=== PATIENT | female | born 1965 | race Caucasian/White ===

== ENCOUNTER 2023-07-30 17:49 | Emergency (ER) | payer BC, OTHER ==
[2023-07-30 18:15] VITALS: BP 196/85; O2SAT 99
== END 2023-07-30 18:58 | disposition left against medical advice (07) ==
LOC: ED 17:49
DX: Z53.21 Procedure and treatment not carried out due to patient leaving prior to being seen by health care provider (principal)

== ENCOUNTER 2023-07-31 13:23 | Emergency (ER) | payer SELFPAY ==
[2023-07-31 13:33] VITALS: BP 155/79; O2SAT 99
[2023-07-31] MEDS ORDERED: oxyCODONE 5 MG TABLET PO STA (13:35)
--- NOTE | 2023-07-31 13:36 | ED Physician Documentation ---
History of Present Illness - Stated complaint Stated Complaint: LT FOOT PX - Chief complaint Chief Complaint: Ext Problem - History obtained from History obtained from: Patient - Additonal information Additional information: 58-year-old woman with longstanding type 2 diabetes on insulin presents for the evaluation of foot and leg pain that is been going on for about 10 days. There is no specific injury. She described a stabbing pain in the heel. She wonders if it might be neuropathy. She has tried gabapentin without relief. She notes swelling in the area. Denies fevers or chills. PD PAST MEDICAL HISTORY - Present Medications Home Medications: Ambulatory Orders Medication Instructions Recorded Confirmed Gabapentin [Neurontin] 300 mg PO TID 07/30/23 07/31/23 Insulin Glargine [Lantus Solostar] 40 unit SUBQ DAILY 07/30/23 07/31/23 Oxycodone HCl/Acetaminophen 1 each PO Q4H PRN #15 tablet 07/31/23 [Oxycodone-Acetaminophen 10-300] - Allergies Allergies/Adverse Reactions: Allergies Allergy/AdvReac Type Severity Reaction Status Date / Time Penicillins Allergy Rash Verified 07/30/23 18:12 PD ED PE NORMAL - Vitals Vital signs reviewed: Yes - General General: Alert and oriented X 3, No acute distress - Extremities Extremities: Other (see MDM text box too small) - Neuro Neuro: Alert and oriented X 3, Normal speech Results - Vitals Vitals: Vital Signs - 24 hr 07/31/23 13:27 Temperature 36.7 C Heart Rate 102 H Respiratory 20 Rate Blood Pressure 155/79 H O2 Saturation 99 Oxygen O2 Source Room air - Rads (name of study) Three-view x-ray left foot with suggestion of avulsion fracture off the posterior calcaneus. Relevant Findings:: Final report received, EMP independent interpretation of test DVT ultrasound negative per RDMS Relevant Findings:: Prelim report reviewed Procedures - Splint (location) - Minor LLE Splint applied by: Physician Type of splint: Fiberglass, Short leg, Posterior Other: Patient tolerated well, No complications, Neurovascular intact, Crutches provided PD Medical Decision Making - ED course ED course: LLE exam: Focal tenderness of the distal Achilles and insertion of the Achilles on the calcaneus of the left foot. Achilles function is intact though. No tenderness of the plantar fascia. No decrease sensation in the foot. She does have tenderness of the calf as well. There is swelling about the ankle. No warmth or redness. Passive range of motion at the ankle is relatively painless. Normal capillary refill distally in the foot. MDM: 58-year-old woman presents with about 10 days of left heel pain. Differential diagnosis would include calcaneus injury, Achilles tendinitis, and DVT. DVT sono was negative. X-ray showing what looks like an avulsion fracture off the top of the calcaneus. She is placed in a posterior splint nonweightbearing with crutches and advised on orthopedic follow-up. CT was considered but not working today. There is no emergency to that. Departure - Departure Disposition: 01 Home, Self Care Clinical Impression: Left leg pain Calcaneus fracture, left Qualifiers: Encounter type: initial encounter Calcaneus location: unspecified portion of calcaneus Fracture type: closed Fracture alignment: nondisplaced Qualified Code(s): S92.002A - Unspecified fracture of left calcaneus, initial encounter for closed fracture Condition: Good Record reviewed to determine appropriate education?: Yes Instructions: ED Fx Foot Prescriptions: Oxycodone HCl/Acetaminophen [Oxycodone-Acetaminophen 10-300] 1 each PO Q4H PRN #15 tablet PRN Reason: pain Comments: As discussed, it appears that there is probably a calcaneus fracture off the top/back of the calcaneus. Nonweightbearing in the splint keep it elevated. Follow-up with I am prescribing a short course of narcotic pain medication for you. These are potentially dangerous and addictive medications that should be used carefully. These medications may constipate you. Take an ndzz-qac-dfocvtm stool softener (docusate) twice daily with plenty of water while taking these medications. If you go 24 hours without a bowel movement, take soux-dyy-xauwcwb miralax, per package instructions. Do not drink or drive while taking these medications. If you received narcotic or sedating medications while in the emergency department, do not drive for 24 hours. Store this medication in a safe, secure place and out of reach of children. It is a violation of federal law to give or sell this medication to another person or to use in a manner other than prescribed. The ED will not refill narcotic prescriptions, including prescriptions lost or stolen. To dispose of unwanted medications: 1. [facility] provides a drop box for medication in pill form only (no liquids) 8:00 am to 4:30 p.m. Wednesday-Wednesday in the lobby of the [facility] [place], [address] [place] [address]. Empty pills into ziplock bag before disposal. Call [phone] for information. 2.[employer] is a free service available to all [facility] residents. Go to [email or web address] Note that many narcotic pain relievers also contain Tylenol/acetaminophen. Please ensure that your total dose of acetaminophen from all sources does not exceed 3 g (3000 mg) per day. Forms: PCP List
--- NOTE | 2023-07-31 14:14 | XRAY Report ---
PROCEDURE: Foot 3 View LT INDICATIONS: foot/leg pain TECHNIQUE: 3 views of the foot were acquired. COMPARISON: None. FINDINGS: Bones: Focal irregularity is seen involving the posterior calcaneus. Generalized degenerative changes are seen. Soft tissues: No suspicious soft tissue calcifications or masses. IMPRESSION: Focal irregularity seen involving the posterior calcaneus, with moderate suspicion for fracture. Plea se consider a follow-up CT. Reviewed by: Levy Freeman MD on 07/31/2023 1:13 PM BARBY Approved by: Levy Freeman MD on 07/31/2023 1:13 PM BARBY Station ID: [id number]
--- NOTE | 2023-07-31 15:37 | Ultrasound Report ---
PROCEDURE: Duplex Ext Veins Left INDICATIONS: foot/leg pain TECHNIQUE: Real-time imaging, as well as color and pulse Doppler interrogation, were performed of the lower extr emity deep veins from the inguinal ligament to the popliteal fossa. Attempted visualization of the ca lf veins was performed. COMPARISON: None. FINDINGS: The deep veins are normally compressible, and free of intraluminal thrombus. Color and pu lse Doppler demonstrate normal phasic intraluminal flow. There is normal augmentation response to di stal compression maneuver. IMPRESSION: No deep venous thrombosis of the visualized lower extremity. Reviewed by: Lion Alcaraz MD on 07/31/2023 3:36 PM PDT Approved by: Lion Alcaraz MD on 07/31/2023 3:36 PM PDT Station ID: [id number]
--- NOTE | 2023-08-04 10:14 | MISCELLANEOUS PROVIDER NOTE ---
Miscellaneous Provider Note - - Note: 10:13 - Received phone call from [facility] pharmacy in [place] that a prescription electronically submitted by Dr. Keenan on July 31 for Percocet was written for 10 mg - 300 mg. They do not carry this version of Percocet and pharmacist is requesting new prescription for a 10-325 mg which they do have in stock. Reviewed patient's ER record from date of visit. New prescription sent for Percocet [id number] mg.
== END 2023-07-31 15:12 | disposition home or self-care (01) ==
LOC: ED 13:23
DX: S92.002A Unspecified fracture of left calcaneus, initial encounter for closed fracture (principal); X58.XXXA Exposure to other specified factors, initial encounter; E11.9 Type 2 diabetes mellitus without complications; Z79.4 Long term (current) use of insulin
CPT/HCPCS: 29515; 73630; 93971; 99284; A9270

== ENCOUNTER 2023-08-09 08:00 | Outpatient (CLI) | payer SELFPAY ==
--- NOTE | 2023-08-09 15:45 | XRAY Report ---
PROCEDURE: Foot 3 View LT INDICATIONS: LEFT FOOT PAIN TECHNIQUE: 4 views of the foot were acquired. COMPARISON: None. FINDINGS: Bones: Similar appearance of the posterior/superior calcaneus, with a probable healing fracture. Soft tissues: No suspicious soft tissue calcifications or masses. IMPRESSION: Suspected healing posterior calcaneus fracture. Alternatively, this could represent a large insertion al enthesophytes of the Achilles tendon, with or without fracture. Reviewed by: Martin Woodward on 08/09/2023 3:44 PM PDT Approved by: Martin Woodward on 08/09/2023 3:44 PM PDT Station ID: [id number]
== END 2023-08-09 23:59 | disposition home or self-care (01) ==
LOC: DI.WOS 08:00
PROVIDERS: ATTEND Physician Assistant Surgical
DX: M79.672 Pain in left foot (principal); R93.6 Abnormal findings on diagnostic imaging of limbs

== ENCOUNTER 2023-09-07 08:00 | Outpatient (CLI) | payer SELFPAY ==
--- NOTE | 2023-09-07 15:50 | XRAY Report ---
PROCEDURE: Calcaneus LT INDICATIONS: LEFT CALCANEUS FRACTURE TECHNIQUE: Two views of the calcaneus were acquired. COMPARISON: Foot x-ray 08/09/2023 FINDINGS: Bones: Avulsion fracture involving the posterior margin of the calcaneus at the Achilles attachment d emonstrates increased displacement compared to prior exam. Soft tissues: No suspicious calcifications. Achilles tendon appears normal. IMPRESSION: Increased displacement of posterior calcaneal avulsion fracture. Reviewed by: Kenna Soto MD, PhD on 09/07/2023 3:49 PM PDT Approved by: Kenna Soto MD, PhD on 09/07/2023 3:49 PM PDT Station ID: [id number]
== END 2023-09-07 23:59 | disposition home or self-care (01) ==
LOC: DI.WOS 08:00
PROVIDERS: ATTEND Physician Assistant Surgical
DX: S92.002D Unspecified fracture of left calcaneus, subsequent encounter for fracture with routine healing (principal)

== ENCOUNTER 2024-08-10 10:36 | Emergency (ER) | payer SELFPAY ==
[2024-08-10 11:50] LABS: BASOPHILS # (AUTO) 0.1 10^3/uL (0.0-0.1); BASOPHILS % (AUTO) 0.8 %; EOSINOPHILS # (AUTO) 0.2 10^3/uL (0.0-0.7); EOSINOPHILS % (AUTO) 3.2 %; HCT - HEMATOCRIT 43.9 % (37.0-47.0); HGB - HEMOGLOBIN 14.5 g/dL (12.0-16.0); LYMPHOCYTES # (AUTO) 2.3 10^3/uL (1.5-3.5); LYMPHOCYTES % (AUTO) 29.8 %; MEAN CORPUSCULAR HEMOGLOBIN 30.9 pg (27.0-31.0); MEAN CORPUSCULAR VOLUME 93.6 fL (81.0-99.0); MEAN PLATELET VOLUME 10.5 fL (7.9-10.8); MONOCYTES # (AUTO) 0.6 10^3/uL (0.0-1.0); MONOCYTES % (AUTO) 8.4 %; NEUTROPHILS # (AUTO) 4.4 10^3/uL (1.5-6.6); NEUTROPHILS % (AUTO) 57.7 %; PLT - PLATELET COUNT 249 10^3/uL (130-450); RED BLOOD COUNT 4.69 10^6/uL (4.20-5.40); RED CELL DISTRIBUTION WIDTH 12.9 % (12.0-15.0); WHITE BLOOD COUNT 7.6 x10^3/uL (4.8-10.8)
[2024-08-10 12:04] LABS: ALBUMIN 4.2 g/dL (3.2-5.5); ALBUMIN/GLOBULIN RATIO 1.6 (1.0-2.2); BILIRUBIN,TOTAL 0.5 mg/dL (0.2-1.0); CALCIUM 9.6 mg/dL (8.5-10.3); CREATININE 0.7 mg/dL (0.6-1.3); TOTAL PROTEIN 6.8 g/dL (6.4-8.9)
[2024-08-10 12:24] LABS: TROPONIN I HIGH SENSITIVITY 12.3 ng/L (2.3-14.8)
--- NOTE | 2024-08-10 14:36 | ED Physician Documentation ---
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 She said that she is been having dizziness describes it as a woozy off centered feeling for several months now and is worried that something may be related to the ocular stroke versus new stroke is going on. No nausea vomiting no chest pain or shortness of breath no unilateral leg swelling. PD PAST MEDICAL HISTORY - Past Medical History Past Medical History: Yes Cardiovascular: Hypertension Neuro: CVA Endocrine/Autoimmune: Type 2 diabetes - Past Surgical History Past Surgical History: Yes /MEDICAL INSURANCE CLAIMS PROCESSOR: section HEENT: Tonsil/Adenoidectomy - Present Medications Home Medications: Ambulatory Orders Medication Instructions Recorded Confirmed Gabapentin [Neurontin] 300 mg PO TID 07/30/23 07/31/23 Insulin Glargine [Lantus Solostar] 40 unit SUBQ DAILY 07/30/23 07/31/23 Oxycodone HCl/Acetaminophen 1 each PO Q6HR PRN #15 tablet 08/04/23 [Percocet 10-325 mg Tablet] - Allergies Allergies/Adverse Reactions: Allergies Allergy/AdvReac Type Severity Reaction Status Date / Time Penicillins Allergy Rash Verified 08/10/24 10:53 - Social History Does the pt smoke?: Yes Smoking Status: Current every day smoker Does the pt drink ETOH?: No Does the pt have substance abuse?: No - POLST Patient has POLST: No PD ED PE NORMAL - Vitals Vital signs reviewed: Yes - General General: Alert and oriented X 3, No acute distress, Well developed/nourished - HEENT HEENT: Atraumatic, PERRL, EOMI, Moist mucous membranes - Neck Neck: Supple, no meningeal sign - Cardiac Cardiac: RRR, No murmur - Respiratory Respiratory: No respiratory distress - Derm Derm: Normal color, Warm and dry, No rash - Extremities Extremities: No edema - Neuro Neuro: Alert and oriented X 3, cpas 2-12 intact, No motor deficit, No sensory deficit, Normal speech Eye Opening: Spontaneous Motor: Obeys Commands Verbal: Oriented GCS Score: 15 - Psych Psych: Normal mood Results - Vitals Vitals: Vital Signs - 24 hr 08/10/24 08/10/24 08/10/24 10:46 14:00 15:00 Temperature 36.8 C Heart Rate 92 94 86 Respiratory 15 18 17 Rate Blood Pressure 202/85 H 187/118 H 165/100 H O2 Saturation 99 97 96 08/10/24 17:13 Temperature Heart Rate 84 Respiratory 15 Rate Blood Pressure 165/104 H O2 Saturation 97 Oxygen O2 Source Room air - Labs Labs: Laboratory Tests 08/10/24 08/10/24 11:41 11:41 WBC 7.6 RBC 4.69 Hgb 14.5 Hct 43.9 MCV 93.6 MCH 30.9 MCHC 33.0 RDW 12.9 Plt Count 249 MPV 10.5 Neut # (Auto) 4.4 Lymph # (Auto) 2.3 [place] # (Auto) 0.6 Eos # (Auto) 0.2 Baso # (Auto) 0.1 Absolute Nucleated RBC 0.00 Nucleated RBC % 0.0 Sodium 137 Potassium 4.0 Chloride 102 Carbon Dioxide 29 Anion Gap 6.0 BUN 14 Creatinine 0.7 Estimated GFR (MDRD) 85 L Glucose 107 H Calcium 9.6 Total Bilirubin 0.5 AST 15 ALT 13 Alkaline Phosphatase 73 Troponin I High Sens 12.3 Total Protein 6.8 Albumin 4.2 Globulin 2.6 Albumin/Globulin Ratio 1.6 Lipase 11 - Rads (name of study) Head CT without Relevant Findings:: Final report received, EMP independent interpretation of test, Other (No acute intracranial pathology or finding) Angio head and neck CT Relevant Findings:: Final report received, EMP independent interpretation of test, Other (Proximal internal carotid arteries are widely patent. Markedly tortuosity of the high cervical carotids just below the petrous bone. Moderate to severe high right cervical carotid stenosis below the petrous spine secondary to a mixture of hard and soft plaque. ) PD Medical Decision Making - ED course ED course: 59-year-old female presents emergency department for ongoing months of chronic dizziness and recent diagnoses of ocular right eye stroke. Patient has no nystagmus she is neurologically intact her dizziness she says has slightly increased over the last several months labs are complete for further evaluation no acute abnormal findings. She is being followed by an mathematician for her right ocular stroke. Head CT was complete for further evaluation no acute intracranial hemorrhages or abnormalities CTA head and neck was also complete for further evaluation which revealed normal variant arch anatomy Long segment send no acute disease is much as moderate. Proximal internal carotid arteries are widely patent. Marked tortuosity of the high cervical carotids just below the petrous bone there is a moderate to severe high right cervical carotid stenosis below the petrous bone secondary to a mixture of hard and soft plaque there is significant bilateral cavernous carotid stenotic disease no intracranial arterial filling defect or occlusion or aneurysm. Patient was reassured by these findings she was told to follow-up with her primary care provider who is a polisher brass I informed her that she may benefit from establishing care also with her provider who practices Western medicine to maybe get on some blood pressure medications and someone you can follow-up with her labs and possible outpatient imaging to help with her ongoing dizziness that she has been experiencing. Return precautions have been given patient is safe for discharge at this time. Departure - Departure Disposition: 01 Home, Self Care Clinical Impression: Dizzy Instructions: ED Dizziness UKO Comments: Thank you for trusting us with your care, we have evaluated you for your ongoing dizziness that you are experiencing. We have completed a head CT as well as a CT angio head and neck and we are not seeing any acute abnormalities or findings at this point in time. I would strongly encourage you to establish care with a primary care provider soon as possible for further evaluation of the symptoms that you are experiencing. Please come back in if you are starting develop any worsening symptoms weakness in one-sided body or any other concerning emergent symptoms. PT NAME: BETITO RAI MR#: [id number] REG ER/ED AGE: 59 CI DT/TM: 08/10/24 PCP: Calos Caballero ND : 1965 ATT: SEX: F ORD: Keri Dickson INSIDE SALES ASSISTANT EXAM: [id number] CT/HNA PROCEDURE: Angio Head/Neck INDICATIONS: dizziness, known rt eye ocular stroke TECHNIQUE: After the administration of intravenous contrast, 1 mm thick sections acquired from the aortic arch through the [place]. 3-dimensional zjhfjyb-qfobjeohm-gkcwwxyylz (MIP) and/or volume rendering reformats were acquired of the central intracranial vasculature and neck separately. For radiation dose reduction, the following was used: automated exposure control, adjustment of mA and/or kV according to patient size. CONTRAST: 80ml [id number] COMPARISON: CT head without contrast from the same day which demonstrates no acute intracranial process.. FINDINGS: Image quality: Diagnostic. HEAD CT: CSF Spaces: Basal cisterns are patent. No extra-axial fluid collections. Ventricles are normal in size and shape. Brain: No significant abnormality is seen for scanning technique. Skull and face: Calvarium and visualized facial bones appear intact, without suspicious lesions. Sinuses: Visualized sinuses and mastoids are clear. HEAD CT ANGIOGRAPHY: Anterior circulation: The high cervical internal carotid arteries right below their entrance into the petrous bone are markedly tortuous, right greater than left. The high right cervical carotid has a calcified stenosis which is moderate to severe with associated minimal soft plaque component. This is well seen on coronal image 61 of series 11 and axial image 79 of series 7. There is luminal narrowing of perhaps 60-70%. Above this, there is extensive tortuosity. There is at least a moderate stenosis of the right cavernous carotid on image 62 of series 7. There is a moderate to severe focal left cavernous carotid stenosis which is seen on images 64 and 65 of axial series 7. There is at least moderate diffuse left cavernous carotid stenotic disease. The flow within the paired anterior cerebral arteries is normal and symmetric. The flow within the middle cerebral arteries is normal and symmetric. The anterior communicating artery is seen. No aneurysms are seen. Posterior circulation: Visualized portions of the vertebral arteries demonstrate normal caliber, and join to form a normal appearing basilar artery. Flow within the posterior cerebral arteries is normal and symmetric. No aneurysms are seen. 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 There is extensive plaque present in the apparent right subclavian with the focal moderate weblike stenosis. Reference coronal images 99 and 98 of coronal series 11. The origins of the common carotid arteries appear patent. The common carotid arteries demonstrate normal caliber and courses. The bifurcation regions are both widely patent. There is no proximal internal carotid artery stenosis noted. The high cervical internal carotid arteries right below the entrance into the petrous bone are markedly tortuous, right greater than left. The high right cervical carotid has a calcified stenosis which is moderate to severe with associated minimal soft plaque component. This is well seen on coronal image 61 of series 11 and axial image 79 of series 7. There is luminal narrowing of perhaps 60-70%. Above this, there is extensive tortuosity. Posterior circulation: The origins of the vertebral arteries both appear widely patent. The more superior extracranial portions of both vertebral arteries also demonstrate normal courses and calibers. They join to form a normal appearing basilar artery. Soft tissues: Visualized neck soft tissues demonstrate no suspicious abnormalities. Bones: No suspicious bony lesions. Visualized cervical spine appears normally aligned. IMPRESSION: 1. Normal variant arch anatomy with an apparent right subclavian which has long segment stenotic disease, as much is moderate. 2. Proximal internal carotid arteries are widely patent. 3. There is marked tortuosity of the high cervical carotids just below the petrous bone. There is a moderate to severe high right cervical carotid stenosis below the petrous bone secondary to a mixture of hard and soft plaque. 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 4. No intracranial arterial filling defect or occlusion or aneurysm. The estimate of stenosis included in the report of the imaging study was calculated using the NASCET method PT NAME: BETITO RAI MR#: [id number] REG ER/ED AGE: 59 CI DT/TM: 08/10/24 PCP: Calos Caballero ND : 1965 ATT: SEX: F ORD: Valeria kuhn MD EXAM: [id number] CT/HEADWO ([id number]) PROCEDURE: Head WO INDICATIONS: R eye visual loss, L eye blurry TECHNIQUE: Noncontrast 4.5 mm thick angled axial sections acquired from the foramen magnum to the vertex. For radiation dose reduction, the following was used: automated exposure control, adjustment of mA and/or kV according to patient size. COMPARISON: None. FINDINGS: Image quality: Excellent. CSF spaces: Basal cisterns are patent. No extra-axial fluid collections. Ventricles are normal in size and shape. Brain: No midline shift. No intracranial masses or hemorrhage. Mike-white matter interface is normal. Intracranial carotid calcifications. Age-related volume loss and age appropriate small vessel ischemic change. Skull and face: Calvarium and visualized facial bones are intact, without suspicious lesions. Sinuses: Visualized sinuses and mastoids are clear. IMPRESSION: No acute intracranial pathology. Reviewed by: Chung Cerda MD on 08/10/2024 3:29 PM PDT Approved by: Chung Cerda MD on 08/10/2024 3:29 PM PDT Forms: PCP List Discharge Date/Time: 08/10/24 17:13
[2024-08-10] MEDS ORDERED: iohexoL-300 100 ML VIAL ONE (14:43)
[2024-08-10] MEDS: iohexoL-300 100 ML VIAL IVP ONE (15:21)
--- NOTE | 2024-08-10 15:30 | CT Report ---
PROCEDURE: Head WO INDICATIONS: R eye visual loss, L eye blurry TECHNIQUE: Noncontrast 4.5 mm thick angled axial sections acquired from the foramen magnum to the vertex. For r adiation dose reduction, the following was used: automated exposure control, adjustment of mA and/or kV according to patient size. COMPARISON: None. FINDINGS: Image quality: Excellent. CSF spaces: Basal cisterns are patent. No extra-axial fluid collections. Ventricles are normal in size and shape. Brain: No midline shift. No intracranial masses or hemorrhage. Mike-white matter interface is norm al. Intracranial carotid calcifications. Age-related volume loss and age appropriate small vessel is chemic change. Skull and face: Calvarium and visualized facial bones are intact, without suspicious lesions. Sinuses: Visualized sinuses and mastoids are clear. IMPRESSION: No acute intracranial pathology. Reviewed by: Chung Cerda MD on 08/10/2024 3:29 PM PDT Approved by: Chung Cerda MD on 08/10/2024 3:29 PM PDT Station ID: [id number]
--- NOTE | 2024-08-10 15:57 | CT Report ---
PROCEDURE: Angio Head/Neck INDICATIONS: dizziness, known rt eye ocular stroke TECHNIQUE: After the administration of intravenous contrast, 1 mm thick sections acquired from the aortic arch t hrough the [employer]. 3-dimensional btozequ-pqnndhygs-kgoyutftml (MIP) and/or volume renderin g reformats were acquired of the central intracranial vasculature and neck separately. For radiation dose reduction, the following was used: automated exposure control, adjustment of mA and/or kV acco rding to patient size. CONTRAST: 80ml [id number] COMPARISON: CT head without contrast from the same day which demonstrates no acute intracranial proc ess.. FINDINGS: Image quality: Diagnostic. HEAD CT: CSF Spaces: Basal cisterns are patent. No extra-axial fluid collections. Ventricles are normal in size and shape. Brain: No significant abnormality is seen for scanning technique. Skull and face: Calvarium and visualized facial bones appear intact, without suspicious lesions. Sinuses: Visualized sinuses and mastoids are clear. HEAD CT ANGIOGRAPHY: Anterior circulation: The high cervical internal carotid arteries right below their entrance into the petrous bone are markedly tortuous, right greater than left. The high right cervical carotid has a c alcified stenosis which is moderate to severe with associated minimal soft plaque component. This is well seen on coronal image 61 of series 11 and axial image 79 of series 7. There is luminal narrowing of perhaps 60-70%. Above this, there is extensive tortuosity. There is at least a moderate stenosis of the right cavernous carotid on image 62 of series 7. There is a moderate to severe focal left cave rnous carotid stenosis which is seen on images 64 and 65 of axial series 7. There is at least moderat e diffuse left cavernous carotid stenotic disease. The flow within the paired anterior cerebral arter ies is normal and symmetric. The flow within the middle cerebral arteries is normal and symmetric. The anterior communicating artery is seen. No aneurysms are seen. Posterior circulation: Visualized portions of the vertebral arteries demonstrate normal caliber, and join to form a normal appearing basilar artery. Flow within the posterior cerebral arteries is norm al and symmetric. No aneurysms are seen. 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 There is extensive plaque present in the apparent right subclavian with the focal moderate weblike stenosis. Reference coronal images 99 and 9 8 of coronal series 11. The origins of the common carotid arteries appear patent. The common carotid arteries demonstrate normal caliber and courses. The bifurcation regions are both widely patent. Th ere is no proximal internal carotid artery stenosis noted. The high cervical internal carotid arterie s right below the entrance into the petrous bone are markedly tortuous, right greater than left. The high right cervical carotid has a calcified stenosis which is moderate to severe with associated mini mal soft plaque component. This is well seen on coronal image 61 of series 11 and axial image 79 of s rain 7. There is luminal narrowing of perhaps 60-70%. Above this, there is extensive tortuosity. Posterior circulation: The origins of the vertebral arteries both appear widely patent. The more figueroa perior extracranial portions of both vertebral arteries also demonstrate normal courses and calibers. They join to form a normal appearing basilar artery. Soft tissues: Visualized neck soft tissues demonstrate no suspicious abnormalities. Bones: No suspicious bony lesions. Visualized cervical spine appears normally aligned. IMPRESSION: 1. Normal variant arch anatomy with an apparent right subclavian which has long segment stenotic dise ase, as much is moderate. 2. Proximal internal carotid arteries are widely patent. 3. There is marked tortuosity of the high cervical carotids just below the petrous bone. There is a m oderate to severe high right cervical carotid stenosis below the petrous bone secondary to a mixture of hard and soft plaque. 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 4. No intracranial arterial filling defect or occlusion or aneurysm. The estimate of stenosis included in the report of the imaging study was calculated using the NASCET method Reviewed by: Chung Cerda MD on 08/10/2024 3:55 PM PDT Approved by: Chung Cerda MD on 08/10/2024 3:55 PM PDT Station ID: [id number]
[2024-08-10 17:30] VITALS: BP 165/104; O2SAT 97
== END 2024-08-10 17:13 | disposition home or self-care (01) ==
LOC: ED 10:36
DX: R42 Dizziness and giddiness (principal); F17.200 Nicotine dependence, unspecified, uncomplicated
CPT/HCPCS: 36415; 70450; 70496; 70498; 80053; 83690; 84484; 85025; 93005; 99283; 99284; Q9967; 83735

== ENCOUNTER 2025-09-13 16:19 | Observation (INO) ==
[2025-09-13] MEDS: SODIUM CHLORIDE 0.9% 1,000 ML IV STA (17:07)
[2025-09-13 17:18] LABS: HCT - HEMATOCRIT 39.5 % (37.0-47.0); HGB - HEMOGLOBIN 13.2 g/dL (12.0-16.0); MEAN PLATELET VOLUME 10.0 fL (7.9-10.8); NRBC ABSOLUTE COUNT (AUTO) 0.00 x10^3/uL; NUCLEATED RED BLOOD CELLS AUTO 0.0 /100WBC; PLT - PLATELET COUNT 268 10^3/uL (130-450); RED CELL DISTRIBUTION WIDTH 12.0 % (12.0-15.0)
[2025-09-13 17:28] LABS: ALT ALANINE AMINOTRANSFERASE 31.0 IU/L (10-60); AST ASPARTATE AMINOTRANSFERASE 24.0 IU/L (10-42); BUN - BLOOD UREA NITROGEN 43.0 mg/dL (6-20); CARBON DIOXIDE - CO2 27.0 mmol/L (21-32); CREATININE 1.5 mg/dL (0.6-1.3); GFR - MDRD 35.0 (>89)
--- OUTSIDE RECORDS SUMMARY | 2025-09-13 17:28 | EXTERNAL MEDICAL SUMMARY RPT | Continuity of Care Document ---
Author Organization [facility] Address [address] [place] [id number] Phone Problems date description facility 2025-09-05 15:28 Calculus of gallblad shobha [facility]stit[facility] 2025-09-07 09:39 Calculus of gallblad shobha without cholecystitis [facility] [employer] [facility] 2025-09-07 09:39 [facility] 2025-09-12 14:04 Heart failure, unspecified id [facility] 2025-09-12 14:04 Calculus of gallblad shobha without cholecystitis without obstruction [facility] 2025-09-12 14:04 Acute cholecystitis [facility] 2025-09-12 14:04 [facility] foot [facility] [employer] [facility] 2025-09-12 14:04 [facility]pitations [facility] 2025-09-12 14:04 Dyspnea, unspecified [facility] 2025-09-12 14:04 Other forms of dyspnea [facility] 2025-09-12 14:04 Upper abdominal pain, unspecifi ed [facility] 2025-09-12 14:04 Right upper quadrant pain [facility] 2025-09-12 14:04 Epigastric pain [facility] 2025-09-12 14:04 Nausea [facility] 2025-09-12 14:04 [facility] 14:04 Nausea with vomiting, unspecifi ed [facility] 2025-09-12 14:04 Dizziness and giddiness [facility] 2025-09-12 15:55 Heart failure, unspecified id [facility] 2025-09-12 15:55 Calculus of gallblad shobha without cholecystitis without obstruction [facility] 2025-09-12 15:55 Acute [facility]stitis [facility] 2025-09-12 15:55 [facility] 2025-09-12 15:55 Palpitations [facility] 2025-09-12 15:55 Dyspnea, unspecified [facility] 2025-09-12 15:55 Other forms of dyspnea [facility] 2025-09-12 15:55 Upper abdominal pain, unspecifi ed [facility] 2025-09-12 15:55 Right upper quadrant pain [facility] 2025-09-12 15:55 Epigastric pain [facility] 2025-09-12 15:55 Nausea [facility] 2025-09-12 15:55 [facility]omiting, unspecified [facility] 2025-09-12 15:55 Nausea with vomiting, unspecifi ed [facility] 2025-09-12 15:55 Dizziness and giddiness [facility] Results/Labs test date facility value unit notes Result panel 1 NUCLEATED RED BLOOD CELLS AUTO 2025-09-05 11:57 [facility] 0.0 /100wbc (missing) NRBC ABSOLUTE COUNT (AUTO) 2025-09-05 11:57 [facility] 0.00 x10 3/ul (missing) BASOPHILS # (AUTO) 2025-09-05 11:57 [facility] 0.1 10 3/ul (missing) EOSINOPHILS # (AUTO) 2025-09-05 11:57 [facility] 0.2 10 3/ul (missing) BILIRUBIN,TOTAL 2025-09-05 11:57 [facility] 0.4 mg/dl As of May 2023 testing method has changed, this may include reference ranges. MONOCYTES # (AUTO) 2025-09-05 11:57 [facility] 0.9 10 3/ul (missing) CREATININE 2025-09-05 11:57 [facility] 1.0 mg/dl As of May 2023 testing method has changed, this may include reference ranges. ALBUMIN/GLOBULIN RATIO 2025-09-05 11:57 [facility] 1.4 (missing) (missing) WHITE BLOOD COUNT 2025-09-05 11:57 [facility] 10.1 x10 3/ul (missing) MEAN CORPUSCULAR VOLUME 2025-09-05 11:57 [facility] 100.3 fl (missing) CHLORIDE 2025-09-05 11:57 [facility] 102 mmol/l As of May 2023 testing method has changed, this may include reference ranges. RED CELL DISTRIBUTION WIDTH 2025-09-05 11:57 [facility] 12.3 % (missing) HGB - HEMOGLOBIN 2025-09-05 11:57 [facility] 12.7 g/dl (missing) SODIUM 2025-09-05 11:57 [facility] 135 mmol/l (missing) BUN - BLOOD UREA NITROGEN 2025-09-05 11:57 [facility] 18 mg/dl As of May 2023 testing method has changed, this may include reference ranges. LYMPHOCYTES # (AUTO) 2025-09-05 11:57 [facility] 2.1 10 3/ul (missing) GLUCOSE 2025-09-05 11:57 [facility] 206 mg/dl As of May 2023 testing method has changed, this may include reference ranges. AST ASPARTATE AMINOTRANSFERASE 2025-09-05 11:57 [facility] 21 iu/l As of May 2023 testing method has changed, this may include reference ranges. ALT ALANINE AMINOTRANSFERASE 2025-09-05 11:57 [facility] [facility] 23 iu/l As of May 2023 testing method has changed, this may include reference ranges. LIPASE 2025-09-05 11:57 [facility] 26 u/l As of May 2023 testing method has changed, this may include reference ranges. PLT - PLATELET COUNT 2025-09-05 11:57 [facility] 261 10 3/ul (missing) ANION GAP 2025-09-05 11:57 [facility] 3.0 (missing) (missing) GLOBULIN 2025-09-05 11:57 [facility] 3.1 g/dl (missing) RED BLOOD COUNT 2025-09-05 11:57 [facility] 3.88 10 6/ul (missing) CARBON DIOXIDE - CO2 2025-09-05 11:57 [facility] 30 mmol/l As of May 2023 testing method has changed, this may include reference ranges. MEAN CORPUSCULAR HGB CONC 2025-09-05 11:57 [facility] 32.6 g/dl (missing) MEAN CORPUSCULAR HEMOGLOBIN 2025-09-05 11:57 [facility] 32.7 pg (missing) HCT - HEMATOCRIT 2025-09-05 11:57 [facility] 38.9 % (missing) ALBUMIN 2025-09-05 11:57 [facility] 4.2 g/dl As of May 2023 testing method has changed, this may include reference ranges. POTASSIUM 2025-09-05 11:57 [facility] 4.6 mmol/l As of May 2023 testing method has changed, this may include reference ranges. GFR - MDRD 2025-09-05 11:57 [facility] 56 (missing) The IDMS-traceable MDRD Study Equation has been validated extensively in and populations between the ages of 18 and 70 with impaired kidney function (eGFR < 60 mL/min/1.73m2) and has shown good performance for patients with all common causes of kidney disease. Although this equation has not been validated for patients older than 70, an MDRD-derived eGFR may still be a useful tool for providers caring for patients older than 70. References: http://www.nkdep. nih.gov/lab-evalu ation/gfr/creatin ine-stand ardization, last updated January 2012. NEUTROPHILS # (AUTO) 2025-09-05 11:57 [facility] 6.9 10 3/ul (missing) TOTAL PROTEIN 2025-09-05 11:57 [facility] 7.3 g/dl As of May 2023 testing method has changed, this may include reference ranges. ALKALINE PHOSPHATASE 2025-09-05 11:57 [facility] 70 iu/l As of May 2023 testing method has changed, this may include reference ranges. CALCIUM 2025-09-05 11:57 [facility] 9.6 mg/dl As of May 2023 testing method has changed, this may include reference ranges. MEAN PLATELET VOLUME 2025-09-05 11:57 [facility] 9.9 fl (missing) Result panel 2 UROBILINOGEN,URINE 2025-09-05 14:10 [facility] 0.2 (NORMAL) e.u./dl (missing) SPECIFIC GRAVITY,URINE 2025-09-05 14:10 [facility] 1.010 (missing) (missing) PH,URINE 2025-09-05 14:10 [facility] 7.0 ph (missing) CLARITY,URINE 2025-09-05 14:10 [facility] CLEAR (missing) (missing) COLOR,URINE 2025-09-05 14:10 [facility] LIGHT YELLOW (missing) URINE CLEAN CATCH LEUKOCYTE ESTERASE, URINE 2025-09-05 14:10 [facility] NEGATIVE (missing) (missing) NITRITE,URINE 2025-09-05 14:10 [facility] NEGATIVE (missing) (missing) OCCULT BLOOD,URINE 2025-09-05 14:10 [facility] NEGATIVE (missing) (missing) BILIRUBIN,URINE 2025-09-05 14:10 [facility] NEGATIVE (missing) Bilirubin can be influenced by color interference. Please correlate positive results with clinical presentation GLUCOSE, URINE (UA) 2025-09-05 14:10 [facility] NEGATIVE mg/dl (missing) KETONES,URINE (UA) 2025-09-05 14:10 [facility] NEGATIVE mg/dl (missing) UR CULTURE IF IND 2025-09-05 14:10 [facility] NOT INDICATED (missing) (missing) URINE MICROSCOPIC INDICATED? 2025-09-05 14:10 [facility] NOT INDICATED (missing) (missing) PROTEIN,URINE 2025-09-05 14:10 [facility] TRACE mg/dl (missing) Result panel 3 NUCLEATED RED BLOOD CELLS AUTO 2025-09-11 19:22 [facility] 0.0 /100wbc (missing) BASOPHILS # (AUTO) 2025-09-11 19:22 [facility] 0.0 10 3/ul (missing) NRBC ABSOLUTE COUNT (AUTO) 2025-09-11 19:22 [facility] 0.00 x10 3/ul (missing) EOSINOPHILS # (AUTO) 2025-09-11 19:22 [facility] 0.1 10 3/ul (missing) BILIRUBIN,TOTAL 2025-09-11:22 [facility] 0.4 mg/dl As of May 2023 testing method has changed, this may include reference ranges. MONOCYTES # (AUTO) 2025-09-11 19:22 [facility] 0.6 10 3/ul (missing) CREATININE 2025-09-11 19:22 [facility] 0.8 mg/dl As of May 2023 testing method has changed, this may include reference ranges. ALBUMIN/GLOBULIN RATIO 2025-09-11 19:22 [facility] 1.4 (missing) (missing) LYMPHOCYTES # (AUTO) 2025-09-11 19:22 [facility] 1.6 10 3/ul (missing) WHITE BLOOD COUNT 2025-09-11 19:22 [facility] 10.2 x10 3/ul (missing) CHLORIDE 2025-09-11 19:22 [facility] 103 mmol/l As of May 2023 testing method has changed, this may include reference ranges. RED CELL DISTRIBUTION WIDTH 2025-09-11 19:22 [facility] 11.9 % (missing) HGB - HEMOGLOBIN 2025-09-11 19:22 [facility] 13.6 g/dl (missing) SODIUM 2025-09-11 19:22 [facility] 138 mmol/l (missing) GLUCOSE 2025-09-11 19:22 [facility] 152 mg/dl As of May 2023 testing method has changed, this may include reference ranges. BUN - BLOOD UREA NITROGEN 2025-09-11 19:22 [facility] 16 mg/dl As of May 2023 testing method has changed, this may include reference ranges. LIPASE 2025-09-11 19:22 [facility] 19 u/l As of May 2023 testing method has changed, this may include reference ranges. AST ASPARTATE AMINOTRANSFERASE 2025-09-11 19:22 [facility] 25 iu/l As of May 2023 testing method has changed, this may include reference ranges. CARBON DIOXIDE - CO2 2025-09-11 19:22 [facility] 26 mmol/l As of May 2023 testing method has changed, this may include reference ranges. PLT - PLATELET COUNT 2025-09-11 19:22 [facility] 271 10 3/ul (missing) GLOBULIN 2025-09-11 19:22 [facility] 3.1 g/dl (missing) MEAN CORPUSCULAR HEMOGLOBIN 2025-09-11 19:22 [facility] 32.2 pg (missing) MEAN CORPUSCULAR HGB CONC 2025-09-11 19:22 [facility] 33.1 g/dl (missing) ALT ALANINE AMINOTRANSFERASE 2025-09-11 19:22 [facility] 37 iu/l As of May 2023 testing method has changed, this may include reference ranges. RED BLOOD COUNT 2025-09-11 19:22 [facility] 4.22 10 6/ul (missing) POTASSIUM 2025-09-11 19:22 [facility] 4.3 mmol/l As of May 2023 testing method has changed, this may include reference ranges. ALBUMIN 2025-09-11 19:22 [facility] 4.4 g/dl As of May 2023 testing method has changed, this may include reference ranges. HCT - HEMATOCRIT 2025-09-11 19:22 [facility] 41.1 % (missing) ALKALINE PHOSPHATASE 2025-09-11 19:22 [facility] 69 iu/l As of May 2023 testing method has changed, this may include reference ranges. TOTAL PROTEIN 2025-09-11 19:22 [facility] 7.5 g/dl As of May 2023 testing method has changed, this may include reference ranges. NEUTROPHILS # (AUTO) 2025-09-11 19:22 [facility] 7.9 10 3/ul (missing) GFR - MDRD 2025-09-11 19:22 [facility] 73 (missing) The IDMS-traceable MDRD Study Equation has been validated extensively in and populations between the ages of 18 and 70 with impaired kidney function (eGFR < 60 mL/min/1.73m2) and has shown good performance for patients with all common causes of kidney disease. Although this equation has not been validated for patients older than 70, an MDRD-derived eGFR may still be a useful tool for providers caring for patients older than 70. References: http://www.nkdep. nih.gov/lab-evalu ation/gfr/creatin ine-stand ardization, last updated January 2012. ANION GAP 2025-09-11 19:22 [facility] 9.0 (missing) (missing) CALCIUM 2025-09-11 19:22 [facility] 9.8 mg/dl As of May 2023 testing method has changed, this may include reference ranges. MEAN PLATELET VOLUME 2025-09-11 19:22 [facility] 9.9 fl (missing) MEAN CORPUSCULAR VOLUME 2025-09-11 19:22 [facility] 97.4 fl (missing) Result panel 4 CASTS, URINE 2025-09-11 19:35 [facility] 0-2 Hyaline Casts /lpf (missing) WBC,URINE 2025-09-11 19:35 [facility] 0-3 /hpf (missing) RBC,URINE 2025-09-11 19:35 [facility] 0-5 /hpf (missing) UROBILINOGEN,URIN E 2025-09-11 19:35 [facility] 0.2 (NORMAL) e.u./dl (missing) SPECIFIC GRAVITY,URINE 2025-09-11 19:35 [facility] 1.025 (missing) (missing) PROTEIN,URINE 2025-09-11 19:35 [facility] 100 mg/dl (missing) KETONES,URINE (UA) 2025-09-11 19:35 [facility] 40 mg/dl (missing) PH,URINE 2025-09-11 19:35 [facility] 6.0 ph (missing) SQUAMOUS EPITHELIAL CELL,UR 2025-09-11 19:35 [facility] FEW Squamous (missing) (missing) BACTERIA,URINE 2025-09-11 19:35 [facility] Few /hpf (missing) CLARITY,URINE 2025-09-11 19:35 [facility] HAZY (missing) (missing) URINE MICROSCOPIC INDICATED? 2025-09-11 19:35 [facility] INDICATED (missing) (missing) LEUKOCYTE ESTERASE, URINE 2025-09-11 19:35 [facility] NEGATIVE (missing) (missing) NITRITE,URINE 2025-09-11 19:35 [facility] NEGATIVE (missing) (missing) BILIRUBIN,URINE 2025-09-11 19:35 [facility] NEGATIVE (missing) Bilirubin can be influenced by color interference. Please correlate positive results with clinical presentation GLUCOSE, URINE (UA) 2025-09-11 19:35 [facility] NEGATIVE mg/dl (missing) UR CULTURE IF IND 2025-09-11 19:35 [facility] NOT INDICATED (missing) (missing) OCCULT BLOOD,URINE 2025-09-11 19:35 [facility] TRACE-INTACT (missing) (missing) COLOR,URINE 2025-09-11 19:35 [facility] YELLOW (missing) URINE CLEAN CATCH Social History date description facility
--- NOTE | 2025-09-13 18:15 | XRAY Report ---
PROCEDURE: XR Chest 1V INDICATIONS: lightheadeness TECHNIQUE: One view of the chest was acquired. COMPARISON: CXR 05/27/2025. FINDINGS: Surgical changes and devices: None. Lungs and pleura: No pleural effusions or pneumothorax. No consolidation. Mediastinum: Mediastinal contours appear normal. Heart size is normal. Bones and chest wall: No suspicious bony lesions. Overlying soft tissues appear unremarkable. IMPRESSION: No acute cardiopulmonary process. Reviewed by: Parrish Merchant MD on 09/13/2025 6:11 PM PDT Approved by: Parrish Merchant MD on 09/13/2025 6:11 PM PDT Station ID: [id number]
--- NOTE | 2025-09-13 18:26 | ED Physician Documentation ---
History of Present Illness Stated complaint Stated Complaint: LOW BP, ABD PX Chief complaint Chief Complaint: Abd Pain History obtained from History obtained from: Patient History of Present Illness Timing: Prior to arrival Additonal information Additional information: Patient 60-year-old female presenting to the emergency department with private vehicle for low blood pressure and abdominal pain she was brought in by surgery appointment with His office after being seen here multiple times for cholelithiasis symptoms. She notes s she was scheduling with 's office for planning for surgery in the outpatient setting but while there she was notably hypotensive and lightheaded. Patient notes this has been going on for multiple months. Earlier this year in March she had an NSTEMI which she was seen here for and transferred to [facility] where she had 3 stents placed. She notes she has had no syncopal episodes no nausea or vomiting. She has had decreased eating or drinking secondary to her right upper quadrant pain. She denies any chest pain no shortness of breath with her symptoms she has resolution of dizziness and lightheadedness while at rest. Meds/Allgy Home Medications Ambulatory Orders Medication Instructions Recorded Confirmed flash glucose scanning reader 10/03/24 09/13/25 (FreeStyle Cassie 2 [place]) flash glucose sensor (FreeStyle 10/03/24 09/13/25 Cassie 2 Sensor kit) insulin glargine 100 unit/mL (3 30 unit subcut DAILY 1 12/03/23 09/13/25 mL) subcutaneous pen (Lantus Solostar U-100 Insulin) pen needle, diabetic 31 gauge x 10/03/24 09/13/25 5/16" (Droplet Pen Needle) albuterol sulfate 90 mcg/actuation 2 puff inhalation Q ID PRN 01/22/25 09/13/25 aerosol inhaler (Ventolin HFA) shortness of breath or wheezing #8.5 grams clopidogrel 75 mg tablet (Plavix) 75 mg PO DAILY #30 t abs 01/22/25 09/13/25 atorvastatin 10 mg tablet (Lipitor) 10 mg PO QPM 02/1109/13/25 amlodipine 5 mg tablet 5 mg PO BID 09/05/25 10/ 5 carvedilol 12.5 mg tablet 12.5 mg PO BID 09/05/25 10 ezetimibe 10 mg tablet 10 mg PO DAILY 09/05/2508/17 insulin lispro 100 unit/mL 3 - 5 unit subcut TID 09/0509/13/25 subcutaneous pen (Humalog KwikPen (U-100) Insulin) losartan 50 mg tablet 50 mg PO BID 09/05/25 ondansetron 4 mg disintegrating 4 mg PO Q8H PRN nausea and 09/05/25 09/13/25 tablet vomiting #15 tabs oxycodone 5 mg tablet 5 mg PO Q8H PRN pain #15 tab s 09/05/25 09/13/25 spironolactone 25 mg tablet 25 mg PO DAILY 09/05/25 (Aldactone) Allergies Allergies Allergy/AdvReac Type Severity Reaction Status Date / Time Penicillins Allergy Rash Verified 09/13/25 16:43 PFSH Active Problems All Active Problems (Updated 09/13/25 @ 18:51 by Jocelyn Gomez PA-C) Biliary colic (Acute) SYLVIA (acute kidney injury) (Acute) Vomiting (Acute) Cholelithiasis (Acute) Medical History Medical History Afib Diabetes Surgical History Surgical History Hx of heart artery stent Social History Social History Smoking Status: Current every day smoker Number of Years Smoked: 45 How many cigarettes a day do you smoke? (20 cigarettes=1 Pk): 10 Do you dip or chew tobacco?: No Do you vape?: No Living arrangement: At home Level: Independent Do you feel safe in your home environment?: Yes History of physical, verbal, emotional, or financial abuse?: No ETOH Use: None Substance Use: denies use POLST Patient has POLST: No Exam Exam Vital Signs: Vital Signs x48h Temp Pulse Resp BP Pulse Ox 09/13/25 18:28 79 18 166/79 H 94 09/13/25 16:43 76 18 122/76 97 09/13/25 16:39 37.0 C 81 16 92/57 L 97 Constitutional normal general appearance HENMT normocephalic and head/scalp atraumatic Eyes PERRL, EOMs intact bilaterally and conjunctivae normal Neck/C-Spine visual inspection normal Lymph no lymphadenopathy noted Chest inspection of chest normal Respiratory breath sounds equal bilaterally, normal respiratory effort and clear to auscultation bilaterally Cardiovascular normal heart rate noted, regular rhythm noted, no gallop and no rub Gastrointestinal Abdomen is benign on arrival no rebound or guarding palpation is soft with active bowel sounds on auscultation. No CVA tenderness. Skin skin color normal and no rash Results Vitals Vitals: Vital Signs - 24 hr 09/13/25 16:39 09/13/25 16:43 09/13/25 18:28 Temperature 37.0 C Temperature Source Temporal Artery Scan Pulse Rate 81 76 79 Respiratory Rate 16 18 18 Blood Pressure 92/57 L 122/76 166/79 H O2 Saturation 97 97 94 O2 Source Room air Room air Room air Pain Intensity 8 6 4 Oxygen O2 Source Room air EKG (time done) 1731: EKG releavant findings:: EKG personally interpreted by author of this note. Relevant findings are: Rate: Rate (enter#) (71 bpm) Rhythm: NSR Intervals: Normal [place] QRS: QRS normal Ischemia: Normal ST segments Compare to prior EKG: Unchanged from prior EKG Computer interpretation: Agree with computer Labs Labs: Laboratory Tests 09/13/25 09/13/25 17:05 18:10 WBC 8.3 RBC 4.02 L Hgb 13.2 Hct 39.5 MCV 98.3 MCH 32.8 H MCHC 33.4 RDW 12.0 Plt Count 268 MPV 10.0 Neut # (Auto) 4.2 Lymph # (Auto) 3.0 [place] # (Auto) 0.8 Eos # (Auto) 0.2 Baso # (Auto) 0.1 Absolute Nucleated RBC 0.00 Nucleated RBC % 0.0 Sodium 136 Potassium 4.2 Chloride 99 L Carbon Dioxide 27 Anion Gap 10.0 BUN 43 H Creatinine 1.5 H Estimated GFR (MDRD) 35 L Glucose 158 H Lactic Acid 0.9 Calcium 9.9 Total Bilirubin 0.5 AST 24 ALT 31 Alkaline Phosphatase 68 Total Protein 7.6 Albumin 4.4 Globulin 3.2 Albumin/Globulin Ratio 1.4 Lipase 20 Urine Color YELLOW Urine Clarity HAZY Urine pH 6.0 Ur Specific [place] 1.025 Urine Protein 30 H Urine Glucose (UA) NEGATIVE Urine Ketones 40 H Urine Occult Blood NEGATIVE Urine Nitrite NEGATIVE Urine Bilirubin SMALL H Urine Urobilinogen 0.2 (NORMAL) Ur Leukocyte Esterase TRACE H Ur Microscopic Review INDICATED Urine Culture Comments Not Reportable PD Medical Decision Making ED course Complexity details: reviewed old records and reviewed results ED course: Patient is 60-year-old female presenting to the emergency department with low blood pressure right upper quadrant pain that she has been seeing for doctor's office for history of cholelithiasis she was seen here few days ago for similar symptoms but did not have low blood pressure at that time. Patient is feeling lightheaded and dizzy and has sought this office and was sent here to the ED. On arrival patient awake alert ambulating no acute distress answering questions appropriately blood pressure stable at 122 on arrival nontachycardic. EKG here in the emergency department shows normal sinus rhythm no acute changes from previous EKG. Labs here in the emergency department show no leukocytosis CMP is remarkable for SYLVIA. Patient has baseline creatinine closer to 0.8 patient's creatinine today 1.5 but no electrolyte abnormalities her chest x-ray shows no acute cardiopulmonary findings and urine analysis is negative. Blood cultures are pending and lactic acid is negative low suspicion for sepsis as no acute cause for infection at this time and her abdomen is benign on examination. This office visited patient here in the ED he has low suspicion for any acute abdomen and wanted patient evaluate for hypotension and lightheadedness symptoms. I discussed with patient staying overnight and she is agreeable with this plan however I discussed with 's office and he would be able to have a cholecystectomy planned for her stay here in the ED given this is most likely causing her dehydration given her persistent nausea vomiting and abdominal pain symptoms. I also discussed with Dr. Leal who is on-call and he agrees to perform the surgery if His office is unable to do it tomorrow. Patient is agreeable with this plan she is willing to stay overnight received IV fluids and will be put n.p.o. at midnight in case his office is able to do surgery tomorrow. Additionally patient was admitted to the hospitalist and the PA who will help control her meds at home. Discharge Plan Discharge Patient Disposition: 65 [facility] DC/Xfer Condition: Stable Clinical Impression: Cholelithiasis, Vomiting, SYLVIA (acute kidney injury), Biliary colic Prescriptions: No Action insulin glargine [Lantus Solostar U-100 Insulin] 100 unit/mL (3 mL) insulin pen 30 unit subcut DAILY Patient Comments: inject 30 units subcutaneously once daily clopidogrel [Plavix] 75 mg tablet 75 mg PO DAILY Qty: 30 0RF albuterol sulfate [Ventolin HFA] 90 mcg/actuation HFA aerosol inhaler 2 puff inhalation QID PRN (Reason: shortness of breath or wheezing) Qty: 8.5 0RF atorvastatin [Lipitor] 10 mg tablet 10 mg PO QPM spironolactone [Aldactone] 25 mg tablet 25 mg PO DAILY ezetimibe 10 mg tablet 10 mg PO DAILY amlodipine 5 mg tablet 5 mg PO BID Patient Comments: take 1 tablet by mouth twice a day carvedilol 12.5 mg tablet 12.5 mg PO BID Rx Instructions: must administer with a meal/food losartan 50 mg tablet 50 mg PO BID Patient Comments: take 1 tablet by mouth twice a day insulin lispro [Humalog KwikPen Insulin] 100 unit/mL insulin pen 3 - 5 unit SUBCUT TID Patient Comments: INJECT 3 TO 5 UNITS UNDER THE SKIN 15 MINUTES BEFORE MEALS. MAX OF 20 UNITS DAILY. oxycodone 5 mg tablet 5 mg PO Q8H PRN (Reason: pain) Qty: 15 0RF ondansetron 4 mg tablet,disintegrating 4 mg PO Q8H PRN (Reason: nausea and vomiting) Qty: 15 0RF (DME) pen needle, diabetic [Droplet Pen Needle] 31 gauge x 5/16" needle See Rx Instructions .Route Rx Instructions: As directed (DME) FreeStyle Cassie 2 [place] Misc See Rx Instructions .Route Rx Instructions: As directed (DME) FreeStyle Cassie 2 Sensor Kit See Rx Instructions .Route Rx Instructions: As directed Print Language: Estonian
[2025-09-13 18:42] LABS: GLUCOSE, URINE (UA) NEGATIVE (NEGATIVE); KETONES,URINE (UA) 40 mg/dL (NEGATIVE); OCCULT BLOOD,URINE NEGATIVE (NEGATIVE)
[2025-09-13 18:51] LABS: CASTS, URINE 3-5 Hyaline Casts /LPF; SQUAMOUS EPITHELIAL CELL,UR MOD Squamous (<= Few)
--- NOTE | 2025-09-13 19:33 | HISTORY & PHYSICAL EXAMINATION ---
Chief Complaint Chief Complaint Chief Complaint: weak and dizzy History of Present Illness Admitted From Admitted From:: home History Obtained From Records Reviewed: past ED records History obtained from: patient History of Present Illness HPI Comment/Other: 60 yo female with history of CAD s/p stents x3, DM insulin dependent, with weight loss and abdominal pain who presents to the ED after being seen at the general surgery clinic, with hypotension, and sent to the ED. She has had a 20 pound weight loss she thinks over the last 4 years. This is unintentional. She does have periods where she vomits for about 24 hours. This been going on for some time. May or may not be associated with her gallbladder. She has never had a colonoscopy. She had a non-ST elevation AR in January of this year which ultimately resulted in stent placement x 3. She is on Plavix 75 mg daily she took this this morning but no aspirin. She smokes, 4 to 5 cigarettes a day. About 4 months ago she began to complain of right upper quadrant and epigastric pain and was seen in our emergency department. At 1 of these visits she had had a syncopal episode and fallen resulting in a head laceration. She has had multiple imaging studies. To include right upper quadrant abdominal ultrasounds and abdominal CTs. She has had gallstones. She also has had some dilation of the bile ducts. In any event she is having difficulty eating and drinking at home and presented to the general surgery clinic with hypotension today. No family hx- she is adopted. children are healthly. She smokes tobacco, no alcohol or other drugs. has not had a colonoscopy ever. This patient would like her CODE STATUS to be full code. Her daughter Cheryl Godwin is her surrogate decision maker should she need one. Meds/Allgy Home Medications Ambulatory Orders Medication Instructions Recorded Confirmed flash glucose scanning reader 10/03/24 09/13/25 (FreeStyle Cassie 2 [place]) flash glucose sensor (FreeStyle 10/03/24 09/13/25 Cassie 2 Sensor kit) insulin glargine 100 unit/mL (3 30 unit subcut DAILY 1 12/03/23 09/13/25 mL) subcutaneous pen (Lantus Solostar U-100 Insulin) pen needle, diabetic 31 gauge x 10/03/24 09/13/25 5/16" (Droplet Pen Needle) albuterol sulfate 90 mcg/actuation 2 puff inhalation Q ID PRN 01/22/25 09/13/25 aerosol inhaler (Ventolin HFA) shortness of breath or wheezing #8.5 grams clopidogrel 75 mg tablet (Plavix) 75 mg PO DAILY #30 t abs 01/22/25 09/13/25 atorvastatin 10 mg tablet (Lipitor) 10 mg PO QPM 02/1109/13/25 amlodipine 5 mg tablet 5 mg PO BID 09/05/25 5 carvedilol 12.5 mg tablet 12.5 mg PO BID 09/05/2508/17 ezetimibe 10 mg tablet 10 mg PO DAILY 09/05/2508/17 insulin lispro 100 unit/mL 3 - 5 unit subcut TID 09/0509/13/25 subcutaneous pen (Humalog KwikPen (U-100) Insulin) losartan 50 mg tablet 50 mg PO BID 09/05/25 ondansetron 4 mg disintegrating 4 mg PO Q8H PRN nausea and 09/05/25 09/13/25 tablet vomiting #15 tabs oxycodone 5 mg tablet 5 mg PO Q8H PRN pain #15 tab s 09/05/25 09/13/25 spironolactone 25 mg tablet 25 mg PO DAILY 09/05/25 (Aldactone) Allergies Allergies Allergy/AdvReac Type Severity Reaction Status Date / Time Penicillins Allergy Rash Verified 09/13/25 16:43 PFSH Active Problems All Active Problems (Updated 09/13/25 @ 19:54 by VERNON Melissa) CAD (coronary artery disease) (Acute) Diabetes (Chronic) Biliary colic (Acute) SYLVIA (acute kidney injury) (Acute) Vomiting (Acute) Cholelithiasis (Acute) Medical History Medical History Afib Diabetes Surgical History Surgical History Hx of heart artery stent Social History Social History Smoking Status: Current every day smoker Number of Years Smoked: 45 How many cigarettes a day do you smoke? (20 cigarettes=1 Pk): 10 Do you dip or chew tobacco?: No Do you vape?: No Living arrangement: At home Level: Independent Do you feel safe in your home environment?: Yes History of physical, verbal, emotional, or financial abuse?: No ETOH Use: None Substance Use: denies use POLST Patient has POLST: No POLST on file?: No Review of Systems Status of ROS: 10 or more systems reviewed and unremarkable except as noted in history and below Prior Level of Functionality: independent. blind in her right eye, complications of DM Exam Exam Vital Signs: Vital Signs x48h Temp Pulse Resp BP Pulse Ox 09/13/25 19:28 73 20 129/69 97 09/13/25 18:28 79 18 166/79 H 94 09/13/25 16:43 76 18 122/76 97 09/13/25 16:39 37.0 C 81 16 92/57 L 97 Constitutional normal general appearance thin female. HENMT hearing grossly normal bilaterally and oral mucous membranes normal Eyes conjunctivae normal Neck/C-Spine visual inspection normal Lymph no lymphadenopathy noted Chest inspection of chest normal Respiratory breath sounds equal bilaterally, normal respiratory effort and clear to auscultation bilaterally Cardiovascular normal heart rate noted Gastrointestinal abdomen soft to palpation, tender to palpation (moderate) and (RUQ) and nondistended Extremities normal to inspection and normal to palpation Neurology no movement abnormality noted, no focal motor deficit noted, no sensory deficits noted and GCS 15 Psychiatry mental status grossly normal, oriented x3 and thought process normal Skin skin color normal Conclusion/Plan Problem List (1) SYLVIA (acute kidney injury): Plan: Laboratory Tests 05/27/25 09/05/25 09/11/25 02:14 11:57 19:22 Creatinine 1.0 1.0 0.8 Estimated GFR (MDRD) 56 L 56 L 73 L 09/13/25 17:05 Creatinine 1.5 H Estimated GFR (MDRD) 35 L Likely secondary to dehydration. I think this is related to severe symptoms of biliary colic. She has been struggling with epigastric pain for about 4 months now and having intermittent exacerbations. She has been not eating and drinking at home due to abdominal pain. I discussed this patient with Carmita Gomez PA-C in the ED and decided to admit her to observation status for IV hydration and monitoring of her renal function. I am hoping that with supportive care, her renal function will improve back to baseline. I am ordering normal saline at 125 cc/ hr overnight. She may eat and drink at will until midnight. (2) Biliary colic: Plan: Intermittent episodes for about 4 months. She has had CT A/P x2 showing gallstones without cholecystitis. She had a RUQUS showing possible cholecystitis in May with some ductal dilation. today, she has had pain and hypotension. Her AP is normal, as is her bili. She does not have a leukocystosis. I think that she is having symtptomatic biliary colic, and this, combined with her SYLVIA which is likely due to inability to eat and drink means that she would likely benefit from cholecystectomy. (3) Diabetes: Plan: insulin dependent for 20+ years. I am concerned that she may have some episodes of diabetic gastroparesis. 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 She is blind in her right eye. She tells me that her last A1c was 7%, but she cannot tell me how recent that was. her PCP is a tapper helper, Dr Caballero, in [place]. She takes 15U lantus every day and 5-6u of "short acting" (?Lispro) with meals at home. Since she will be NPO after MN here, I will place her on SSI at NPO dosing. Will check A1C with AM labs. She is NPO for OR, but on diet resumption, will plan for carb control. (4) CAD (coronary artery disease): Plan: s/p Stenting in February of this year. on plavix, not aspirin. last plavix taken this AM. no chest pain. no extremity swelling. no POWELL. Plan I have spent 85 minutes in the care of this patient today. This includes time [id number], review and ordering of diagnostic imaging and laboratory studies and consultation with other providers. Monitoring the patient's signs symptoms, evaluation of medication effectiveness and patient's response to treatment. Lab Results Lab results reviewed: Yes 09/13/25 17:05 09/13/25 17:05 Diagnostic Imaging Results Diagnostic Imaging Results: positive Final report reviewed Core Measures Anticipated LOS I expect patient to be DC'd or transferred within 96 hours.: Yes DVT/VTE - Prophylaxis VTE/DVT Device ordered at admit?: Yes VTE/DVT Prophylaxis med ordered at admit?: No Not Ordered - Medical Reason: Contraindicated (Surgery in the morning)
[2025-09-13] MEDS ORDERED: HYDROmorphone 0.5 MG/0.5 ML SYRINGE IVP PRN (21:13)
[2025-09-13] MEDS ORDERED: ACETAMINOPHEN 325 MG TABLET PO PRN (21:13)
[2025-09-13] MEDS: SODIUM CHLORIDE 0.9% 1,000 ML IV SCH (22:25)
[2025-09-13] MEDS: oxyCODONE 5 MG TABLET PO PRN (22:25)
[2025-09-14] MEDS: INSULIN REGULAR, HUMAN 300 UNIT/3 ML PEN SUBQ SCH ×2 (01:16→18:50)
[2025-09-14 05:56] LABS: HCT - HEMATOCRIT 38.6 % (37.0-47.0); HGB - HEMOGLOBIN 12.7 g/dL (12.0-16.0); MEAN PLATELET VOLUME 9.8 fL (7.9-10.8); NRBC ABSOLUTE COUNT (AUTO) 0.00 x10^3/uL; NUCLEATED RED BLOOD CELLS AUTO 0.0 /100WBC; PLT - PLATELET COUNT 253 10^3/uL (130-450); RED CELL DISTRIBUTION WIDTH 12.0 % (12.0-15.0)
[2025-09-14 06:10] LABS: ALT ALANINE AMINOTRANSFERASE 27.0 IU/L (10-60); AST ASPARTATE AMINOTRANSFERASE 19.0 IU/L (10-42); BUN - BLOOD UREA NITROGEN 30.0 mg/dL (6-20); CARBON DIOXIDE - CO2 27.0 mmol/L (21-32); CREATININE 0.9 mg/dL (0.6-1.3); GFR - MDRD 64.0 (>89)
[2025-09-14] MEDS: SODIUM CHLORIDE FLUSH 0.9% 10 ML SYRINGE IVP SCH (06:40)
--- NOTE | 2025-09-14 07:11 | CONSULTATION NOTE ---
Referring Provider Consult Date: 09/14/25 Chief Complaint Chief Complaint Chief Complaint: Abdominal pain History of Present Illness History Obtained From History obtained from: Patient History of Present Illness HPI Comment/Other: 60 yo female with history of CAD s/p stents x3, DM insulin dependent, with weight loss and abdominal pain who presents to the ED after being seen at the general surgery clinic, with hypotension, and sent to the ED. She has had a 20 pound weight loss she thinks over the last 4 years. This is unintentional. She does have periods where she vomits for about 24 hours. This been going on for some time. May or may not be associated with her gallbladder. She has never had a colonoscopy. She had a non-ST elevation [place] in January of this year which ultimately resulted in stent placement x 3. She is on Plavix 75 mg daily she took this this morning but no aspirin. She smokes, 4 to 5 cigarettes a day. About 4 months ago she began to complain of right upper quadrant and epigastric pain and was seen in our emergency department. At 1 of these visits she had had a syncopal episode and fallen resulting in a head laceration. She has had multiple imaging studies, including right upper quadrant abdominal ultrasounds and abdominal CTs that has demonstrated cholelithiasis without definitive evidence of cholecystitis. In any event she is having difficulty eating and drinking at home and presented to the general surgery clinic with hypotension today likely from dehydration and poor po intake. She was sent to the ED and discovered to have an SYLVIA with Cr of 1.5 from her baseline around 0.8. She was admitted to medicine and hydrated overnight with improvement of her Cr back to baseline this morning. No family hx- she is adopted. children are healthly. She smokes tobacco, no alcohol or other drugs. PFSH Active Problems All Active Problems (Updated 09/13/25 @ 19:54 by VERNON Melissa) CAD (coronary artery disease) (Acute) Diabetes (Chronic) Biliary colic (Acute) SYLVIA (acute kidney injury) (Acute) Vomiting (Acute) Cholelithiasis (Acute) Medical History Medical History Afib Diabetes Surgical History Surgical History Hx of heart artery stent Social History Social History Smoking Status: Current every day smoker Number of Years Smoked: 45 How many cigarettes a day do you smoke? (20 cigarettes=1 Pk): 10 Do you dip or chew tobacco?: No Do you vape?: No Patient requests smoking cessation consult: No Initiate information on smoking cessation: No Living arrangement: At home Level: Independent Do you feel safe in your home environment?: Yes History of physical, verbal, emotional, or financial abuse?: No ETOH Use: None Substance Use: denies use POLST Patient has POLST: No POLST on file?: No Meds/Allgy Home Medications Ambulatory Orders Medication Instructions Recorded Confirmed flash glucose scanning reader 10/03/24 09/13/25 (FreeStyle Cassie 2 [place]) flash glucose sensor (FreeStyle 10/03/24 09/13/25 Cassie 2 Sensor kit) insulin glargine 100 unit/mL (3 30 unit subcut DAILY 1 12/03/23 09/13/25 mL) subcutaneous pen (Lantus Solostar U-100 Insulin) pen needle, diabetic 31 gauge x 10/03/24 09/13/25 5/16" (Droplet Pen Needle) albuterol sulfate 90 mcg/actuation 2 puff inhalation Q ID PRN 01/22/25 09/13/25 aerosol inhaler (Ventolin HFA) shortness of breath or wheezing #8.5 grams clopidogrel 75 mg tablet (Plavix) 75 mg PO DAILY #30 t abs 01/22/25 09/13/25 atorvastatin 10 mg tablet (Lipitor) 10 mg PO QPM 02/1109/13/25 amlodipine 5 mg tablet 5 mg PO BID 09/05/25 5 carvedilol 12.5 mg tablet 12.5 mg PO BID 09/05/2508/17 ezetimibe 10 mg tablet 10 mg PO DAILY 09/05/2508/17 insulin lispro 100 unit/mL 3 - 5 unit subcut TID 09/0509/13/25 subcutaneous pen (Humalog KwikPen (U-100) Insulin) losartan 50 mg tablet 50 mg PO BID 09/05/25 ondansetron 4 mg disintegrating 4 mg PO Q8H PRN nausea and 10/22/25 10/30/25 tablet vomiting #15 tabs oxycodone 5 mg tablet 5 mg PO Q8H PRN pain #15 tab s 09/05/25 09/13/25 spironolactone 25 mg tablet 25 mg PO DAILY 09/05/25 (Aldactone) Allergies Allergies Allergy/AdvReac Type Severity Reaction Status Date / Time Penicillins Allergy Rash Verified 09/13/25 16:43 Results Lab Results Lab results reviewed: Yes 09/14/25 05:51 09/14/25 05:51 Other Lab Results: Lab Results x24hrs 09/14/25 09/14/25 09/13/25 Range/Units 05:51 00:11 18:10 WBC 8.1 (4.8-10.8) x10^3/uL RBC 3.88 L (4.20-5.40) 10^6/uL Hgb 12.7 (12.0-16.0) g/dL Hct 38.6 (37.0-47.0) % MCV 99.5 H (81.0-99.0) fL MCH 32.7 H (27.0-31.0) pg MCHC 32.9 (32.0-36.0) g/dL RDW 12.0 (12.0-15.0) % Plt Count 253 (130-450) 10^3/uL MPV 9.8 (7.9-10.8) fL Neut # (Auto) 3.7 (1.5-6.6) 10^3/uL Lymph # (Auto) 3.1 (1.5-3.5) 10^3/uL [place] # (Auto) 1.0 (0.0-1.0) 10^3/uL Eos # (Auto) 0.2 (0.0-0.7) 10^3/uL Baso # (Auto) 0.1 (0.0-0.1) 10^3/uL Absolute Nucleated RBC 0.00 x10^3/uL Nucleated RBC % 0.0 /100WBC Sodium 137 (135-145) mmol/L Potassium 4.1 (3.5-4.5) mmol/L Chloride 106 (101-111) mmol/L Carbon Dioxide 27 (21-32) mmol/L Anion Gap 4.0 L (6-13) BUN 30 H (6-20) mg/dL Creatinine 0.9 (0.6-1.3) mg/dL Estimated GFR (MDRD) 64 L (>89) Glucose 181 H (74-104) mg/dL POC Whole Bld Glucose 164 267 (70-100) mg/dL Lactic Acid (0.5-2.2) mmol/L Calcium 9.3 (8.5-10.3) mg/dL Total Bilirubin 0.4 (0.2-1.0) mg/dL AST 19 (10-42) IU/L ALT 27 (10-60) IU/L Alkaline Phosphatase 65 (42-121) IU/L Total Protein 7.0 (6.4-8.9) g/dL Albumin 4.1 (3.2-5.5) g/dL Globulin 2.9 (2.1-4.2) g/dL Albumin/Globulin Ratio 1.4 (1.0-2.2) Lipase (11-82) U/L Urine Color YELLOW Urine Clarity HAZY (CLEAR) Urine pH 6.0 (5.0-7.5) PH Ur Specific [place] 1.025 (1.002-1.030) Urine Protein 30 H (NEGATIVE) mg/dL Urine Glucose (UA) NEGATIVE (NEGATIVE) mg/dL Urine Ketones 40 H (NEGATIVE) mg/dL Urine Occult Blood NEGATIVE (NEGATIVE) Urine Nitrite NEGATIVE (NEGATIVE) Urine Bilirubin SMALL H (NEGATIVE) Urine Urobilinogen 0.2 (NORMAL) (NORMAL) E.U./dL Ur Leukocyte Esterase TRACE H (NEGATIVE) Urine RBC 0-5 (0-5) /HPF Urine WBC 0-3 (0-5) /HPF Ur Squamous Epith Cells MOD Squamous H (<= Few) Urine Bacteria Few (None Seen) /HPF Urine Casts 3-5 Hyaline Casts /LPF Ur Microscopic Review INDICATED Urine Culture Comments NOT INDICATED 09/13/25 Range/Units 17:05 WBC 8.3 (4.8-10.8) x10^3/uL RBC 4.02 L (4.20-5.40) 10^6/uL Hgb 13.2 (12.0-16.0) g/dL Hct 39.5 (37.0-47.0) % MCV 98.3 (81.0-99.0) fL MCH 32.8 H (27.0-31.0) pg MCHC 33.4 (32.0-36.0) g/dL RDW 12.0 (12.0-15.0) % Plt Count 268 (130-450) 10^3/uL MPV 10.0 (7.9-10.8) fL Neut # (Auto) 4.2 (1.5-6.6) 10^3/uL Lymph # (Auto) 3.0 (1.5-3.5) 10^3/uL [place] # (Auto) 0.8 (0.0-1.0) 10^3/uL Eos # (Auto) 0.2 (0.0-0.7) 10^3/uL Baso # (Auto) 0.1 (0.0-0.1) 10^3/uL Absolute Nucleated RBC 0.00 x10^3/uL Nucleated RBC % 0.0 /100WBC Sodium 136 (135-145) mmol/L Potassium 4.2 (3.5-4.5) mmol/L Chloride 99 L (101-111) mmol/L Carbon Dioxide 27 (21-32) mmol/L Anion Gap 10.0 (6-13) BUN 43 H (6-20) mg/dL Creatinine 1.5 H (0.6-1.3) mg/dL Estimated GFR (MDRD) 35 L (>89) Glucose 158 H (74-104) mg/dL POC Whole Bld Glucose (70-100) mg/dL Lactic Acid 0.9 (0.5-2.2) mmol/L Calcium 9.9 (8.5-10.3) mg/dL Total Bilirubin 0.5 (0.2-1.0) mg/dL AST 24 (10-42) IU/L ALT 31 (10-60) IU/L Alkaline Phosphatase 68 (42-121) IU/L Total Protein 7.6 (6.4-8.9) g/dL Albumin 4.4 (3.2-5.5) g/dL Globulin 3.2 (2.1-4.2) g/dL Albumin/Globulin Ratio 1.4 (1.0-2.2) Lipase 20 (11-82) U/L Urine Color Urine Clarity (CLEAR) Urine pH (5.0-7.5) PH Ur Specific [place] (1.002-1.030) Urine Protein (NEGATIVE) mg/dL Urine Glucose (UA) (NEGATIVE) mg/dL Urine Ketones (NEGATIVE) mg/dL Urine Occult Blood (NEGATIVE) Urine Nitrite (NEGATIVE) Urine Bilirubin (NEGATIVE) Urine Urobilinogen (NORMAL) E.U./dL Ur Leukocyte Esterase (NEGATIVE) Urine RBC (0-5) /HPF Urine WBC (0-5) /HPF Ur Squamous Epith Cells (<= Few) Urine Bacteria (None Seen) /HPF Urine Casts /LPF Ur Microscopic Review Urine Culture Comments Review of Systems Status of ROS: 10 or more systems reviewed and unremarkable except as noted in history and below Exam Exam Vital Signs: Vital Signs x48h Temp Pulse Resp BP Pulse Ox 09/14/25 05:50 36.7 C 77 14 172/84 H 98 09/14/25 00:10 36.6 C 77 16 148/76 H 94 Constitutional normal general appearance and no apparent distress HENMT normocephalic and head/scalp atraumatic Eyes conjunctivae normal and no scleral icterus Neck/C-Spine visual inspection normal Respiratory normal respiratory effort Cardiovascular normal heart rate noted and regular rhythm noted Gastrointestinal abdomen normal to inspection, abdomen soft to palpation and tender to palpation (mild) and (RUQ) Extremities normal to inspection Neurology GCS 15 Psychiatry thought process normal and cooperative Skin skin color normal Conclusion/Plan Problem List (1) SYLVIA (acute kidney injury): (2) Biliary colic: Plan: 60 yo F with recurrent episodes of biliary colic causing her to have poor po intake and admitted yesterday with hypotension and SYLVIA which has since resolved. - OR today for lap shilpa - Keep NPO - Rest of care per primary (3) Diabetes: (4) CAD (coronary artery disease): Lab Results Lab results reviewed: Yes 09/14/25 05:51 09/14/25 05:51
[2025-09-14] MEDS: ALBUTEROL NEB 2.5 MG/3 ML INH SCH (07:24)
[2025-09-14] MEDS ORDERED: LIDOCAINE 1%-EPI 1:100000 20 ML MDV ONE (09:24)
[2025-09-14] MEDS ORDERED: BUPIVACAINE 0.25% PF 30 ML VIAL ONE (09:24)
[2025-09-14] MEDS ORDERED: iohexoL-240 20 ML VIAL IVP ONE (09:49)
--- NOTE | 2025-09-14 11:18 | PHARMACY PROGRESS NOTE ---
Best Possible Medication History Admit Date and Time: 09/13/251917 Home Medications Medication Instructions Recorded Confirmed Type flash glucose scanning reader 10/03/24 09/13/25 Histo ry (FreeStyle Cassie 2 [place]) flash glucose sensor (FreeStyle 10/03/24 09/13/25 His tory Cassie 2 Sensor kit) insulin glargine 100 unit/mL (3 30 unit subcut DAILY 1 12/03/23 09/14/25 History mL) subcutaneous pen (Lantus Solostar U-100 Insulin) pen needle, diabetic 31 gauge x 10/03/24 09/13/25 His tory 5/16" (Droplet Pen Needle) albuterol sulfate 90 mcg/actuation 2 puff inhalation Q ID PRN 01/22/25 09/13/25 Rx aerosol inhaler (Ventolin HFA) shortness of breath or wheezing #8.5 grams clopidogrel 75 mg tablet (Plavix) 75 mg PO DAILY #30 t abs 01/22/25 09/13/25 Rx atorvastatin 10 mg tablet (Lipitor) 10 mg PO QPM 02/1109/13/25 History amlodipine 5 mg tablet 5 mg PO BID 09/05/25 5 History carvedilol 12.5 mg tablet 12.5 mg PO BID 09/05/2508/17 History ezetimibe 10 mg tablet 10 mg PO DAILY 09/05/2508/17 History insulin lispro 100 unit/mL 3 - 5 unit subcut TID 09/0509/13/25 History subcutaneous pen (Humalog KwikPen (U-100) Insulin) losartan 50 mg tablet 50 mg PO BID 09/05/25 History ondansetron 4 mg disintegrating 4 mg PO Q8H PRN nausea and 09/05/25 09/13/25 Rx tablet vomiting #15 tabs oxycodone 5 mg tablet 5 mg PO Q8H PRN pain #15 tab s 09/05/25 09/13/25 Rx spironolactone 25 mg tablet 25 mg PO DAILY 09/05/25 History (Aldactone) Processed by: Pharmacy Medications reviewed in ED?: Yes Medication History completed: Yes Patient Interview: Completed Secondary Source(s): Insurance records [facility] Statement: As the person ultimately responsible for medication therapy, providers are able to order a medication from an existing home medication list in [facility] via the "Reconcile Routine" prior to Confirmation of that medication by patient support representative. Such practice is discouraged except when the physician, in their clinical judgment, deems that a medical need exists for a medication without regard to previous use.
[2025-09-14 11:28] LABS: ESTIMATED AVERAGE GLUCOSE 166 mg/dL (70-100); HEMOGLOBIN A1c% 7.4 % (4.27-6.07)
--- NOTE | 2025-09-14 12:17 | ANESTHESIA PROCEDURE NOTE ---
Pre-Anesthesia VS, & Labs Diagnosis Surgical Diagnosis:: acute cholecystitis Procedure Procedure: lap shilpa Vitals Vital Signs: Temp Pulse Resp BP Pulse Ox 36.7 C 78 18 164/75 H 99 09/14/25 09:20 09/14/25 09:20 09/14/25 09:20 09/14/25 09:20 09/14/25 09:20 NPO NPO: >8 hours Is Patient ?: Not Applicable Lab Results Current Lab Results: Laboratory Tests 09/14/25 05:51: WBC 8.1, RBC 3.88 L, Hgb 12.7, Hct 38.6, MCV 99.5 H, MCH 32.7 H, MCHC 32.9, RDW 12.0, Plt Count 253, MPV 9.8, Neut # (Auto) 3.7, Lymph # (Auto) 3.1, [place] # (Auto) 1.0, Eos # (Auto) 0.2, Baso # (Auto) 0.1, Absolute Nucleated RBC 0.00, Nucleated RBC % 0.0, Sodium 137, Potassium 4.1, Chloride 106, Carbon Dioxide 27, Anion Gap 4.0 L, BUN 30 H, Creatinine 0.9, Estimated GFR (MDRD) 64 L , Glucose 181 H, POC Whole Bld Glucose 164, Calcium 9.3, Total Bilirubin 0.4, AST 19, ALT 27, Alkaline Phosphatase 65, Total Protein 7.0, Albumin 4.1, Globulin 2.9, Albumin/Globulin Ratio 1.4 09/14/25 00:11: POC Whole Bld Glucose 267 09/13/25 17:05: WBC 8.3, RBC 4.02 L, Hgb 13.2, Hct 39.5, MCV 98.3, MCH 32.8 H, MCHC 33.4, RDW 12.0, Plt Count 268, MPV 10.0, Neut # (Auto) 4.2, Lymph # (Auto) 3.0, [place] # (Auto) 0.8, Eos # (Auto) 0.2, Baso # (Auto) 0.1, Absolute Nucleated RBC 0.00, Nucleated RBC % 0.0, Sodium 136, Potassium 4.2, Chloride 99 L, Carbon Dioxide 27, Anion Gap 10.0, BUN 43 H, Creatinine 1.5 H, Estimated GFR (MDRD) 35 L, Glucose 158 H, Lactic Acid 0.9, Calcium 9.9, Total Bilirubin 0.5, AST 24, ALT 31, Alkaline Phosphatase 68, Total Protein 7.6, Albumin 4.4, Globulin 3.2, Albumin/Globulin Ratio 1.4, Lipase 20 Lab results reviewed: Yes 09/14/25 05:51 09/14/25 05:51 Meds/Allgy Home Medications Ambulatory Orders Medication Instructions Recorded Confirmed flash glucose scanning reader 10/03/24 09/13/25 (FreeStyle Cassie 2 [place]) flash glucose sensor (FreeStyle 10/03/24 09/13/25 Cassie 2 Sensor kit) insulin glargine 100 unit/mL (3 30 unit subcut DAILY 1 12/03/23 09/14/25 mL) subcutaneous pen (Lantus Solostar U-100 Insulin) pen needle, diabetic 31 gauge x 10/03/24 09/13/25 5/16" (Droplet Pen Needle) albuterol sulfate 90 mcg/actuation 2 puff inhalation Q ID PRN 01/22/25 09/13/25 aerosol inhaler (Ventolin HFA) shortness of breath or wheezing #8.5 grams clopidogrel 75 mg tablet (Plavix) 75 mg PO DAILY #30 t abs 01/22/25 09/13/25 atorvastatin 10 mg tablet (Lipitor) 10 mg PO QPM 02/1109/13/25 amlodipine 5 mg tablet 5 mg PO BID 09/05/25 5 carvedilol 12.5 mg tablet 12.5 mg PO BID 09/05/2508/17 ezetimibe 10 mg tablet 10 mg PO DAILY 09/05/2508/17 insulin lispro 100 unit/mL 3 - 5 unit subcut TID 09/0509/13/25 subcutaneous pen (Humalog KwikPen (U-100) Insulin) losartan 50 mg tablet 50 mg PO BID 09/05/25 ondansetron 4 mg disintegrating 4 mg PO Q8H PRN nausea and 09/05/25 09/13/25 tablet vomiting #15 tabs oxycodone 5 mg tablet 5 mg PO Q8H PRN pain #15 tab s 09/05/25 09/13/25 spironolactone 25 mg tablet 25 mg PO DAILY 09/05/25 (Aldactone) Allergies Allergies Allergy/AdvReac Type Severity Reaction Status Date / Time Penicillins Allergy Rash Verified 09/13/25 16:43 PFSH Active Problems All Active Problems (Updated 09/13/25 @ 19:54 by VERNON Melissa) CAD (coronary artery disease) (Acute) Diabetes (Chronic) Biliary colic (Acute) SYLVIA (acute kidney injury) (Acute) Vomiting (Acute) Cholelithiasis (Acute) Medical History Medical History Afib Diabetes Surgical History Surgical History Hx of heart artery stent Social History Social History Smoking Status: Current every day smoker Number of Years Smoked: 45 How many cigarettes a day do you smoke? (20 cigarettes=1 Pk): 10 Do you dip or chew tobacco?: No Do you vape?: No Patient requests smoking cessation consult: No Initiate information on smoking cessation: No Living arrangement: At home Level: Independent Do you feel safe in your home environment?: Yes History of physical, verbal, emotional, or financial abuse?: No ETOH Use: None Substance Use: denies use POLST Patient has POLST: No POLST on file?: No POLST CPR Status: Attempt Resuscitation (CPR) Level of Medical Intervention: Full Treatment Anesthesia Exam (Expanded) Exam General: Alert, Oriented x3 and Cooperative Dental: Poor dentition Mouth Openin Fingerbreadth Neck Mobility: Reduced Mallampati classification: III Thyromental Distance: 4-6 cm Exam Exam Vital Signs: Vital Signs x48h Temp Pulse Resp BP BP Pulse Ox 09/14/25 09:20 36.7 C 78 18 164/75 H 99 09/14/25 05:50 36.7 C 77 14 172/84 H 98 Plan Problem List (1) CAD (coronary artery disease): Plan: Reports her last cardiology visit went well w/o issues. Was recommended she stay on plavix for 6 months after stent placements. Denies any history of heart failure. Recommend she restart plavix shelia. Plan Anesthesia Type: General Consent for Procedure(s) Verified and Reviewed: Yes Code Status: Attempt Resuscitation ASA Classification ASA classification: 3-Severe systemic disease Is this case an emergency?: Yes
[2025-09-14] MEDS ORDERED: PROPOFOL 200 MG/20 ML VIAL IVP ONE (12:20)
[2025-09-14] MEDS ORDERED: ROCURONIUM 50 MG/5 ML VIAL ONE (12:20)
[2025-09-14] MEDS ORDERED: MIDAZOLAM 2 MG/2 ML VIAL ONE (12:21)
[2025-09-14] MEDS ORDERED: fentaNYL 100 MCG/2 ML VIAL ONE ×2 (12:21→13:06)
[2025-09-14] MEDS ORDERED: SODIUM CHLORIDE 0.9% 10 ML VIAL ONE (12:27)
[2025-09-14] MEDS ORDERED: ePHEDrine 50 MG/ML VIAL IVP ONE (12:50)
[2025-09-14] MEDS ORDERED: SUGAMMADEX 200 MG/2 ML VIAL IVP ONE (13:36)
[2025-09-14] MEDS ORDERED: ONDANSETRON 4 MG/2 ML VIAL ONE ×2 (13:43→14:25)
--- NOTE | 2025-09-14 13:52 | OPERATIVE REPORT ---
Operative Report General Admit Date: 09/13/25 Procedure Data: Operation Date: 09/14/25 11:00 Proposed Procedures p Laparoscopic Cholecystectomy(Not Applicable) - Pramod Holland MD Actual Procedures p Laparoscopic Cholecystectomy(Not Applicable) - Pramod Holland MD Anesthesia Type General Case Staff Anesthesia Provider: Trudi Dill Case Times Procedure Start: 09/14/25 12:51 Time out: 09/14/25 12:50 Pre-Op Diagnosis: Biliary colic, symptomatic cholelithiasis Post Op Diagnosis: Chronic cholecystitis Procedure Note Intake, IV Amount (ml): 900 Estimated Blood Loss (ml): 5 Output, Urine Amount (ml): 0 Pathology: Gallbladder Indications: Symptomatic cholelithiasis Findings: Decompressed gallbladder with adhesions to the omentum. [place] of [place] identified before clip placement. At the end of the procedure cystic plate was hemostatic and two clips could be identified on the cystic duct and cystic artery in good position. Complications: None Other Other Information/Narrative: Patient was first correctly identified in the preoperative holding area and then wheeled to the operating room via stretcher. There were then made to lay on the operating room table in supine fashion with both arms abducted 90 degrees. The patient underwent general anesthesia induction with endotracheal intubation which she tolerated well. Bilateral sequential compression devices were then placed and preoperative antibiotics were administered. The abdomen was then prepped and draped in the usual surgical sterile fashion and a WHO timeout was called which all were in agreement. A curvilinear incision was then made just below the umbilicus and the umbilical stalk was then grasped with a [place] clamp. This was then elevated as the subcutaneous fat was then completely dissected free of the umbilical stalk and abdominal fascia. An 11 blade scalpel was then used to make a small incision just below where the umbilical stalk met the abdominal wall fascia. In Optiview fashion a 5 mm trocar was then placed through the incision into the abdomen and confirmed intraperitoneal. The abdomen was then insufflated to 15 mmHg which patient tolerated well. The abdomen was then inspected and there were no injuries from the initial trocar placement, the patient was noted to have a large liver without the gallbladder immediately identifiable. There were adhesions noted from the omentum to the liver edge. An additional 5 mm trocar was then placed in the right lateral abdomen and another 5 mm trocar was then placed in the right mid abdomen between the previously placed 5 mm trocars. Both trocars were placed under direct visualization without injury. The umbilical trocar was then upsized to 11 mm trocar and then additional 5 mm trocar was placed in the epigastric area entering the abdomen through the right side of the falciform ligament, again all under direct visualization. The gallbladder fundus was then identified and grasped and elevated towards the right shoulder, ahesions were noted to the liver edge and the gallbladder possible from chronic cholecystitis. The adhesions were taken down from the liver edge and gallbladder using the harmonic scalpel until the gallbladder was completely freed. The infundibulum was then grasped and retracted inferomedially as the peritoneum was then entered and dissected free from the gallbladder up towards the lateral aspect. This was then repeated on the medial aspect using the harmonic scalpel. Attention was then paid to the cystic duct and cystic artery, they were both identified and a plane was cleared between them. The peritoneum was then cleared completely from the lower third of the gallbladder so that the triangle of [place] was identified. There were 2 structures entering the gallbladder with the liver in the background and the lower third of the gallbladder cleared from the cystic plate. The 5 mm clip composition roll maker and cutter was then used to apply 2 proximal clips and 1 distal clip to the cystic duct and then used to apply 2 proximal clips to the cystic artery. The cystic duct was then transected using laparoscopic scissors and there was noted to be only 1 lumen. The cystic artery was then transected using harmonic scalpel in vessel sealer mode.The gallbladder was then completely removed from the cystic plate using the harmonic scalpel. Prior to removal the liver was elevated and there was noted to be no bleeding from the cystic plate and the cystic duct and cystic artery both had 2 clips on each in good position without signs of bleeding or bile le ak. The gallbladder was then placed into an Endo Catch bag and then removed from the abdomen via the the umbilical trocar site. The fascia of the umbilical trocar site was then closed using a #1 PDS suture with an EndoClose device. After this the abdomen was then completely evaluated again there was no signs of bile, bleeding or any other pathology. The abdomen was then completely desufflated of gas and the 5 mm trocars all removed. The skin incisions were then closed using a 4-0 Monocryl suture in a running subcuticular fashion. The abdomen was then cleaned with wet and then dried with gauze and Dermabond was applied to the incisions. At the end of the procedure all sponge, needle, and instrument counts were confirmed correct. The patient was then awoken from general anesthesia and wheeled to the recovery area in good condition.
[2025-09-14] MEDS ORDERED: ATROPINE ABBOJECT 1 MG/10 ML SYRINGE IVP PRN (14:09)
[2025-09-14] MEDS ORDERED: NALOXONE 0.4 MG/ML VIAL IVP PRN (14:09)
[2025-09-14] MEDS ORDERED: MORPHINE 2 MG/ML CARPUJECT IVP PRN (14:09)
[2025-09-14] MEDS ORDERED: fentaNYL 100 MCG/2 ML VIAL IVP PRN (14:09)
[2025-09-14] MEDS: LACTATED RINGERS 1,000 ML IV SCH (14:12)
[2025-09-14] MEDS: ONDANSETRON 4 MG/2 ML VIAL IVP PRN (14:28)
[2025-09-14] MEDS ORDERED: HYDROmorphone 0.5 MG/0.5 ML SYRINGE ONE (14:29)
[2025-09-14] MEDS: HYDROmorphone 0.5 MG/0.5 ML SYRINGE IVP PRN (14:30)
[2025-09-14] MEDS ORDERED: PROCHLORPERAZINE 10 MG/2 ML VIAL ONE (14:34)
[2025-09-14] MEDS: PROCHLORPERAZINE 10 MG/2 ML VIAL IVP PRN (14:35)
--- NOTE | 2025-09-14 15:30 | ANESTHESIA POST OP EVALUATION ---
Anesthesia Post Eval Post Anesthesia Eval Vitals: Last Vital Signs Temp 36.6 C 09/14/25 14:59 Pulse 69 09/14/25 14:59 Resp 16 09/14/25 14:59 BP 145/75 H 09/14/25 14:59 Pulse Ox 94 09/14/25 14:59 CV Function Including HR & BP: Stable Pain Control: Satisfactory Nausea & Vomiting: Negative Mental Status: Baseline Respiratory Status: Airway Patent Hydration Status: Satisfactory Anesthesia Complications: None
[2025-09-14] MEDS: METOCLOPRAMIDE 10 MG/2 ML VIAL IVP SCH (16:46)
--- NOTE | 2025-09-14 18:40 | PROVIDER PROGRESS NOTE ---
Subjective Prog Note Date Prog Note Date: 09/14/25 Subjective Subjective: Seen this AM before lap shilpa and was hungry and anxious. Seen after as well. pain controlled, nauseated, not hungry. Offered dc to home this evening, but nauseated and not feeling well enough to transition to home. Current Medications Current Medications Current Medications: Current Medications Generic Name Dose Route Start Last Admin Trade Name Freq PRN Reason Stop Dose Admin Acetaminophen 650 mg 09/13/25 21:13 Acetaminophen 325 Mg Tablet PO Q4HR PRN Pain 1 to 4, or Fever Carvedilol 12.5 mg 09/14/25 09:00 09/14/25 10:21 Carvedilol 12.5 Mg Tablet PO 12.5 mg BID JOSE R Administration Hydromorphone HCl 0.5 mg 09/13/25 21:13 Hydromorphone 0.5 Mg/0.5 Ml Syringe IVP Q2H PRN Pain 8 to 10 Insulin Human Lispro 1 - 5 unit 09/14/25 17:00 Insulin Lispro 300 Unit/3 Ml Pen SUBQ 0800,1200,1700,2100 [facility] Protocol Metoclopramide HCl 5 mg 09/14/25 16:00 09/14/25 16:46 Metoclopramide 10 Mg/2 Ml Vial IVP 5 mg Q6H JOSE R Administration Ondansetron HCl 4 mg 09/13/25 21:13 Ondansetron 4 Mg/2 Ml Vial IVP Q6HR PRN Nausea / Vomiting Oxycodone HCl 5 mg 09/13/25 21:13 09/14/25 16:46 Oxycodone 5 Mg Tablet PO 5 mg Q4HR PRN Administration Pain 5 to 7 Prochlorperazine Edisylate 10 mg 09/13/25 21:13 09/14/25 14:35 Prochlorperazine 10 Mg/2 Ml Vial IVP 10 mg Q6HR PRN Administration Nausea / Vomiting Sodium Chloride 10 ml 09/13/25 21:13 Sodium Chloride Flush 0.9% 10 Ml Syringe IVP PRN PRN NEEDED PER PROVIDER ORDERS Sodium Chloride 10 ml 09/14/25 01:00 09/14/25 10:18 Sodium Chloride Flush 0.9% 10 Ml Syringe IVP Not Given 0100,0900,1700 [facility] Objective Vital Signs/Intake & Output Reviewed Vital Signs: Yes Vital Signs: Vital Signs x48h Temp Pulse Pulse Resp BP BP Pulse Ox 09/14/25 17:44 36.6 C 83 163/86 H 92 09/14/25 16:44 74 151/76 H 100 09/14/25 16:14 36.7 C 72 173/79 H 98 09/14/25 15:44 74 177/83 H 98 09/14/25 15:29 71 176/71 H 96 09/14/25 15:14 74 166/76 H 98 09/14/25 14:59 36.6 C 69 16 145/75 H 94 09/14/25 14:45 68 12 161/75 H 95 09/14/25 14:40 36.7 C 68 10 L 166/73 H 97 09/14/25 14:35 68 12 182/80 H 98 09/14/25 14:30 69 10 L 194/84 H 94 09/14/25 14:25 72 12 187/81 H 97 09/14/25 14:20 77 16 154/57 H 95 09/14/25 14:15 69 14 148/82 H 95 09/14/25 14:10 96 13 163/72 H 99 09/14/25 14:05 36.8 C 66 18 157/79 H 100 09/14/25 14:00 66 12 167/78 H 100 09/14/25 13:57 36.5 C 68 14 172/79 H 100 Intake & Output: Intake & Output 09/11/25 09/12/25 09/13/25 09/14/25 23:59 23:59 23:59 23:59 Intake Total 1000 / 1000 3835 / 3835 Output Total 0 / 0 Balance 1000 / 1000 3835 / 3835 Weight (kg) 45.359 kg Objective General Appearance: positive Mild distress Eyes Bilateral: positive Conjunctivae nml ENT: positive ENT inspection nml Respiratory: positive No respiratory distress and Breath sounds nml Cardiovascular: positive Regular rate & rhythm Abdomen: positive Other (approp tender, incisional dresssings intact.) Skin: positive Color nml Extremities: positive Non-tender and No pedal edema Neurologic/Psychiatric: positive Oriented x3 Lab Results 09/14/25 05:51 09/14/25 05:51 Other Labs: Lab Results x24hrs 09/14/25 09/14/25 09/14/25 Range/Units 18:08 14:00 12:23 WBC (4.8-10.8) x10^3/uL RBC (4.20-5.40) 10^6/uL Hgb (12.0-16.0) g/dL Hct (37.0-47.0) % MCV (81.0-99.0) fL MCH (27.0-31.0) pg MCHC (32.0-36.0) g/dL RDW (12.0-15.0) % Plt Count (130-450) 10^3/uL MPV (7.9-10.8) fL Neut # (Auto) (1.5-6.6) 10^3/uL Lymph # (Auto) (1.5-3.5) 10^3/uL Ross # (Auto) (0.0-1.0) 10^3/uL Eos # (Auto) (0.0-0.7) 10^3/uL Baso # (Auto) (0.0-0.1) 10^3/uL Absolute Nucleated RBC x10^3/uL Nucleated RBC % /100WBC Sodium (135-145) mmol/L Potassium (3.5-4.5) mmol/L Chloride (101-111) mmol/L Carbon Dioxide (21-32) mmol/L Anion Gap (6-13) BUN (6-20) mg/dL Creatinine (0.6-1.3) mg/dL Estimated GFR (MDRD) (>89) Glucose (74-104) mg/dL POC Whole Bld Glucose 166 147 135 (70-100) mg/dL Estimat Average Glucose (70-100) mg/dL Hemoglobin A1c % (4.27-6.07) % Calcium (8.5-10.3) mg/dL Total Bilirubin (0.2-1.0) mg/dL AST (10-42) IU/L ALT (10-60) IU/L Alkaline Phosphatase (42-121) IU/L Total Protein (6.4-8.9) g/dL Albumin (3.2-5.5) g/dL Globulin (2.1-4.2) g/dL Albumin/Globulin Ratio (1.0-2.2) Urine Color Urine Clarity (CLEAR) Urine pH (5.0-7.5) PH Ur Specific [place] (1.002-1.030) Urine Protein (NEGATIVE) mg/dL Urine Glucose (UA) (NEGATIVE) mg/dL Urine Ketones (NEGATIVE) mg/dL Urine Occult Blood (NEGATIVE) Urine Nitrite (NEGATIVE) Urine Bilirubin (NEGATIVE) Urine Urobilinogen (NORMAL) E.U./dL Ur Leukocyte Esterase (NEGATIVE) Urine RBC (0-5) /HPF Urine WBC (0-5) /HPF Ur Squamous Epith Cells (<= Few) Urine Bacteria (None Seen) /HPF Urine Casts /LPF Ur Microscopic Review Urine Culture Comments 09/14/25 09/14/25 09/13/25 Range/Units 05:51 00:11 18:10 WBC 8.1 (4.8-10.8) x10^3/uL RBC 3.88 L (4.20-5.40) 10^6/uL Hgb 12.7 (12.0-16.0) g/dL Hct 38.6 (37.0-47.0) % MCV 99.5 H (81.0-99.0) fL MCH 32.7 H (27.0-31.0) pg MCHC 32.9 (32.0-36.0) g/dL RDW 12.0 (12.0-15.0) % Plt Count 253 (130-450) 10^3/uL MPV 9.8 (7.9-10.8) fL Neut # (Auto) 3.7 (1.5-6.6) 10^3/uL Lymph # (Auto) 3.1 (1.5-3.5) 10^3/uL Ross # (Auto) 1.0 (0.0-1.0) 10^3/uL Eos # (Auto) 0.2 (0.0-0.7) 10^3/uL Baso # (Auto) 0.1 (0.0-0.1) 10^3/uL Absolute Nucleated RBC 0.00 x10^3/uL Nucleated RBC % 0.0 /100WBC Sodium 137 (135-145) mmol/L Potassium 4.1 (3.5-4.5) mmol/L Chloride 106 (101-111) mmol/L Carbon Dioxide 27 (21-32) mmol/L Anion Gap 4.0 L (6-13) BUN 30 H (6-20) mg/dL Creatinine 0.9 (0.6-1.3) mg/dL Estimated GFR (MDRD) 64 L (>89) Glucose 181 H (74-104) mg/dL POC Whole Bld Glucose 164 267 (70-100) mg/dL Estimat Average Glucose 166 H (70-100) mg/dL Hemoglobin A1c % 7.4 H (4.27-6.07) % Calcium 9.3 (8.5-10.3) mg/dL Total Bilirubin 0.4 (0.2-1.0) mg/dL AST 19 (10-42) IU/L ALT 27 (10-60) IU/L Alkaline Phosphatase 65 (42-121) IU/L Total Protein 7.0 (6.4-8.9) g/dL Albumin 4.1 (3.2-5.5) g/dL Globulin 2.9 (2.1-4.2) g/dL Albumin/Globulin Ratio 1.4 (1.0-2.2) Urine Color YELLOW Urine Clarity HAZY (CLEAR) Urine pH 6.0 (5.0-7.5) PH Ur Specific [place] 1.025 (1.002-1.030) Urine Protein 30 H (NEGATIVE) mg/dL Urine Glucose (UA) NEGATIVE (NEGATIVE) mg/dL Urine Ketones 40 H (NEGATIVE) mg/dL Urine Occult Blood NEGATIVE (NEGATIVE) Urine Nitrite NEGATIVE (NEGATIVE) Urine Bilirubin SMALL H (NEGATIVE) Urine Urobilinogen 0.2 (NORMAL) (NORMAL) E.U./dL Ur Leukocyte Esterase TRACE H (NEGATIVE) Urine RBC 0-5 (0-5) /HPF Urine WBC 0-3 (0-5) /HPF Ur Squamous Epith Cells MOD Squamous H (<= Few) Urine Bacteria Few (None Seen) /HPF Urine Casts 3-5 Hyaline Casts /LPF Ur Microscopic Review INDICATED Urine Culture Comments NOT INDICATED Assessment/Plan Problem List (1) Biliary colic: Impression: Intermittent episodes for about 4 months. She has had CT A/P x2 showing gallstones without cholecystitis. She had a RUQUS showing possible cholecystitis in May with some ductal dilation. today, she has had pain and hypotension. Her AP is normal, as is her bili. She does not have a leukocystosis. Discussed post op w Dr Holland. POD #0 lap shilpa, doing well. Some post op nausea, no vomiting. I have started her on a carb consistent diet and also have started scheduled reglan. I will plan to dc to home in the AM. I have stopped IVF as she can eat and drink. (2) SYLVIA (acute kidney injury): Impression: Likely secondary to dehydration. I think this is related to severe symptoms of biliary colic. She has been struggling with epigastric pain for about 4 months now and having intermittent exacerbations. She has been not eating and drinking at home due to abdominal pain. I am hoping that now that she is post lap shilpa, she will improve. Her SYLVIA resolved overnight with hydration. (3) CAD (coronary artery disease): Impression: s/p Stenting in February of this year. on plavix, not aspirin. last plavix taken this AM. no chest pain. no extremity swelling. no POWELL. She is a smoker. (4) Diabetes: Impression: insulin dependent for 20+ years. I am concerned that she may have some episodes of diabetic gastroparesis. 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 She is blind in her right eye. She tells me that her last A1c was 7%, but she cannot tell me how recent that was. her PCP is a master technician, Dr Caballero, in [place]. She takes 15U lantus every day and 5-6u of "short acting" (?Lispro) with meals at home. updated A1C today. It is 7.4%. I am encouraging her to obtain more conventional primary care, given her DM complications. I discussed the possibility of DM gastroparesis with her as well as her parents, at bedside. I have started her on scheduled Reglan here, and nausea is less this evening. She is currently on carb controlled diet and SSI, low dose. Goal glucose 100- 180 Laboratory Tests 09/14/25 09/14/25 09/14/25 05:51 12:23 14:00 POC Whole Bld Glucose 164 135 147 09/14/25 18:08 POC Whole Bld Glucose 166 I have spent 51 minutes in the care of this patient today. This includes time [id number], review and ordering of diagnostic imaging and laboratory studies and consultation with other providers. Monitoring the patient's signs symptoms, evaluation of medication effectiveness and patient's response to treatment.
[2025-09-14] MEDS: INSULIN LISPRO 300 UNIT/3 ML PEN SUBQ SCH (18:48)
[2025-09-14] MEDS: LOSARTAN 50 MG TABLET PO SCH (22:25)
[2025-09-15 05:48] LABS: HCT - HEMATOCRIT 36.2 % (37.0-47.0); HGB - HEMOGLOBIN 12.2 g/dL (12.0-16.0); MEAN PLATELET VOLUME 10.2 fL (7.9-10.8); NRBC ABSOLUTE COUNT (AUTO) 0.00 x10^3/uL; NUCLEATED RED BLOOD CELLS AUTO 0.0 /100WBC; PLT - PLATELET COUNT 236 10^3/uL (130-450); RED CELL DISTRIBUTION WIDTH 11.9 % (12.0-15.0)
[2025-09-15 06:07] LABS: BUN - BLOOD UREA NITROGEN 18.0 mg/dL (6-20); CARBON DIOXIDE - CO2 28.0 mmol/L (21-32); CREATININE 0.8 mg/dL (0.6-1.3); GFR - MDRD 73.0 (>89)
[2025-09-15 07:39] VITALS: TEMP 98.1
[2025-09-15] MEDS: ONDANSETRON 4 MG/2 ML VIAL IVP PRN (07:49)
[2025-09-15] MEDS: SODIUM CHLORIDE FLUSH 0.9% 10 ML SYRINGE IVP PRN (07:50)
--- NOTE | 2025-09-15 10:28 | Discharge Summary ---
Discharge Summary Admit Date: 09/13/25 Discharge Date: 09/15/25 Discharging Provider: Madelyn Askew PA-C Primary Care Provider: Pelon Caballero ND Code Status: Attempt Resuscitation DIAGNOSES Discharge Diagnoses with Status of Each Condition: Symptomatic biliary colic status postcholecystectomy Acute kidney injury, resolved Coronary artery disease status post stenting February 2025 on Plavix Insulin-dependent diabetes, A1c 7.4% Smoker HPI History of Present Illness: 60 yo female with history of CAD s/p stents x3, DM insulin dependent, with weight loss and abdominal pain who presents to the ED after being seen at the general surgery clinic, with hypotension, and sent to the ED. She has had a 20 pound weight loss she thinks over the last 4 years. This is unintentional. She does have periods where she vomits for about 24 hours. This been going on for some time. May or may not be associated with her gallbladder. She has never had a colonoscopy. She had a non-ST elevation PA in January of this year which ultimately resulted in stent placement x 3. She is on Plavix 75 mg daily she took this this morning but no aspirin. She smokes, 4 to 5 cigarettes a day. About 4 months ago she began to complain of right upper quadrant and epigastric pain and was seen in our emergency department. At 1 of these visits she had had a syncopal episode and fallen resulting in a head laceration. She has had multiple imaging studies. To include right upper quadrant abdominal ultrasounds and abdominal CTs. She has had gallstones. She also has had some dilation of the bile ducts. In any event she is having difficulty eating and drinking at home and presented to the general surgery clinic with hypotension today. No family hx- she is adopted. children are healthly. She smokes tobacco, no alcohol or other drugs. has not had a colonoscopy ever. This patient would like her CODE STATUS to be full code. Her daughter Cheryl Godwin is her surrogate decision maker should she need one. CONSULTS | PROCEDURES Procedures: Laparoscopic cholecystectomy by Dr. Pramod Holland on 09/14/25 HOSPITAL COURSE Hospital Course: (1) Biliary colic: Intermittent episodes for about 4 months. She has had CT A/P x2 showing gallstones without cholecystitis. She had a RUQUS showing possible cholecystitis in May with some ductal dilation. Presented with pain and hypotension. Her AP is normal, as is her bili. She does not have a leukocystosis. POD #1 lap shilpa, doing well. Some post op nausea, no vomiting. She is tolerating a carb controlled diet. I discussed w the patient that she may be developing some diabetic gastroparesis. I am hopeful that this cholecystectomy will resolve her nausea and vomting. I think in this immediate post op period, it is too soon to tell. I have prescribed Reglan for her to use prn, as this has been helpful for her here in the hospital. (2) SYLVIA (acute kidney injury): Likely secondary to dehydration. I think this is related to severe symptoms of biliary colic. She has been struggling with epigastric pain for about 4 months now and having intermittent exacerbations. She has been not eating and drinking at home due to abdominal pain. Her SYLVIA resolved overnight with hydration. (3) CAD (coronary artery disease): s/p Stenting in February of this year. on plavix, not aspirin. last plavix taken this AM. no chest pain. no extremity swelling. no POWELL. She is a smoker. (4) Diabetes: insulin dependent for 20+ years. I am concerned that she may have some episodes of diabetic gastroparesis. 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 She is blind in her right eye. She tells me that her last A1c was 7%, but she cannot tell me how recent that was. her PCP is a foster winder, Dr Caballero, in [place]. She takes 15U lantus every day and 5-6u of "short acting" (?Lispro) with meals at home. updated A1C. It is 7.4%. I am encouraging her to obtain more conventional primary care, given her DM complications. I discussed the possibility of DM gastroparesis with her as well as her parents, at bedside. I have started her on scheduled Reglan here, and this has been somewhat effective. I have encouraged outpatient followup. ALLERGIES Allergies Allergy/AdvReac Type Severity Reaction Status Date / Time Penicillins Allergy Rash Verified 09/13/25 16:43 MEDICATIONS Ambulatory Orders Medication Instructions Recorded Confirmed flash glucose scanning reader 10/03/24 09/13/25 (FreeStyle Cassie 2 [place]) flash glucose sensor (FreeStyle 10/03/24 09/13/25 Cassie 2 Sensor kit) insulin glargine 100 unit/mL (3 30 unit subcut DAILY 1 12/03/23 09/14/25 mL) subcutaneous pen (Lantus Solostar U-100 Insulin) pen needle, diabetic 31 gauge x 10/03/24 09/13/25 5/16" (Droplet Pen Needle) albuterol sulfate 90 mcg/actuation 2 puff inhalation Q ID PRN 01/22/25 09/13/25 aerosol inhaler (Ventolin HFA) shortness of breath or wheezing #8.5 grams clopidogrel 75 mg tablet (Plavix) 75 mg PO DAILY #30 t abs 01/22/25 09/13/25 atorvastatin 10 mg tablet (Lipitor) 10 mg PO QPM 02/1109/13/25 amlodipine 5 mg tablet 5 mg PO BID 09/05/25 5 carvedilol 12.5 mg tablet 12.5 mg PO BID 09/05/2508/17 ezetimibe 10 mg tablet 10 mg PO DAILY 09/05/2508/17 insulin lispro 100 unit/mL 3 - 5 unit subcut TID 09/0509/13/25 subcutaneous pen (Humalog KwikPen (U-100) Insulin) losartan 50 mg tablet 50 mg PO BID 09/05/25 ondansetron 4 mg disintegrating 4 mg PO Q8H PRN nausea and 09/05/25 09/13/25 tablet vomiting #15 tabs spironolactone 25 mg tablet 25 mg PO DAILY 09/05/25 (Aldactone) metoclopramide HCl 10 mg tablet 10 mg PO QAC #90 tabs 09/14/25 oxycodone 5 mg tablet 5 mg PO Q6HR PRN pain #7 tab s 09/14/25 PHYSICAL EXAM AT DISCHARGE Vital Signs: Vital Signs x48h Temp Pulse Resp BP Pulse Ox 09/15/25 11:55 36.7 C 71 14 127/64 97 General Appearance: positive Alert Eyes Bilateral: positive Conjunctivae nml and No scleral icterus ENT: positive ENT inspection nml Neck: positive Nml inspection Respiratory: positive No respiratory distress and Breath sounds nml Cardiovascular: positive Regular rate & rhythm Abdomen: positive No distention and Other (appropriately tender) Skin: positive Color nml Neurologic/Psychiatric: positive Oriented x3 LABS 09/15/25 05:23 09/15/25 05:23 DIAGNOSTIC IMAGING Diagnostic Imaging Results Comments: CXR: no acute findings. EKG: no ischemic findings FOLLOW UP Follow Up: General surgery in about 2 weeks. PCP 7-10 days TIME SPENT Time Spent in Discharge (Minutes): 35 Discharge Plan Discharge Patient Disposition: Home, Self Care Condition: Stable Prescriptions: New oxycodone 5 mg tablet 5 mg PO Q6HR PRN (Reason: pain) Qty: 7 0RF metoclopramide HCl 10 mg tablet 10 mg PO QAC Qty: 90 0RF Rx Instructions: administer 30 minutes before meals Continued insulin glargine [Lantus Solostar U-100 Insulin] 100 unit/mL (3 mL) insulin pen 30 unit subcut DAILY Patient Comments: inject 30 units subcutaneously once daily, BASED ON FILL DATE SUPPLY SHOULD HAVE RAN OUT MID MAY, IT IS NOW END OF AUGUST clopidogrel [Plavix] 75 mg tablet 75 mg PO DAILY Qty: 30 0RF albuterol sulfate [Ventolin HFA] 90 mcg/actuation HFA aerosol inhaler 2 puff inhalation QID PRN (Reason: shortness of breath or wheezing) Qty: 8.5 0RF atorvastatin [Lipitor] 10 mg tablet 10 mg PO QPM spironolactone [Aldactone] 25 mg tablet 25 mg PO DAILY ezetimibe 10 mg tablet 10 mg PO DAILY amlodipine 5 mg tablet 5 mg PO BID Patient Comments: take 1 tablet by mouth twice a day carvedilol 12.5 mg tablet 12.5 mg PO BID Rx Instructions: must administer with a meal/food losartan 50 mg tablet 50 mg PO BID Patient Comments: take 1 tablet by mouth twice a day insulin lispro [Humalog KwikPen Insulin] 100 unit/mL insulin pen 3 - 5 unit SUBCUT TID Patient Comments: INJECT 3 TO 5 UNITS UNDER THE SKIN 15 MINUTES BEFORE MEALS. MAX OF 20 UNITS DAILY. ondansetron 4 mg tablet,disintegrating 4 mg PO Q8H PRN (Reason: nausea and vomiting) Qty: 15 0RF (DME) pen needle, diabetic [Droplet Pen Needle] 31 gauge x 5/16" needle See Rx Instructions .Route Rx Instructions: As directed (DME) FreeStyle Cassie [facility] [place] [facility] See Rx Instructions .Route Rx Instructions: As directed (DME) FreeMill33yle Cassie 2 Sensor Kit See Rx Instructions .Route Rx Instructions: As directed Discontinued oxycodone 5 mg tablet 5 mg PO Q8H PRN (Reason: pain) Qty: 15 0RF Activity Restrictions/Additional Instructions: DIET * You may resume your normal diet if there is no nausea or vomiting. * If nausea or vomiting occurs, don't eat or drink anything for one hour. Then start drinking small amounts of clear liquids. Later, add crackers, gradually building up to your usual diet. ACTIVITY INSTRUCTIONS * No lifting more than 15 pounds for 6 weeks * May shower normally DRESSING CARE * May shower after 24 hours, let soap and water run over the incisions, no rubbing or scrubbing, pat dry * Leave the Dermabond (purple glue) in place - they will fall off on their own in 1-2 weeks * Using supportive garments to reduce surgical site motion will reduce pain DISCHARGE INSTRUCTIONS * Please call the General Surgery Clinic / Dr. Holland's office ([phone]) for any questions or signs of bleeding or infection (redness or drainage at incision, worsening pain/nausea/vomiting/fever). * Go to the Emergency Room after hours for severe symptoms. MEDICATIONS * Use Tylenol (acetaminophen) and Motrin (ibuprofen) on a scheduled basis for the first 3-5 days, then on as "as needed" basis as pain decreases. * Use Oxycodone (a narcotic) for breakthrough pain. Do not drive while taking Oxycodone. * Oxycodone will cause constipation - drink plenty of water, and use [id number] Miralax twice a day as needed. ANESTHESIA PRECAUTIONS * Anesthesia and medications given during surgery remain in your body up to 24 hours. This may slow reaction time and/or decrease coordination. FOR THE NEXT 24 HOURS: * Have a responsible person with you * Avoid any activity that requires you to be alert and coordinated * DO NOT DRIVE a motor vehicle for 24 hours or as long as you are taking opioid pain medication * Do not drink alcoholic beverages * Do not smoke unattended Patient Date Escort Date RN Date Diet: Regular Interventions: Discharge Last Done: 09/15/25 11:55 Discharge Checklist - Nursing Last Done: 09/15/25 11:55 Discharge Vital Signs (30 Minutes) Last Done: 09/15/25 11:55 Health Concerns: What is diabetic gastroparesis? Diabetic gastroparesis is a condition where the stomach takes longer to empty food, causing symptoms like nausea, vomiting, bloating, and feeling full quickly. It is common in people with diabetes and can affect blood sugar control. Diet and eating tips: * Eatsmall, frequent mealsinstead of large ones * Choose foods that aresoft, easy to chew, and low in fat and fiber(a "small particle diet"). Avoid fatty, spicy, acidic, and high-fiber foods, which can worsen symptoms. * Liquids and soups are often better tolerated than solid foods. * Cut fruits and vegetables into small pieces and cook them well to make them easier to digest. * If you have trouble keeping food down, try more liquid-based nutrition. Blood sugar management: * Keep your blood sugar as well-controlled as possible.High blood sugar can slow stomach emptying and make symptoms worse. * Monitor your blood sugar regularly, especially if you are having trouble eating or are vomiting. Medications: * Only usemetoclopramidefor severe symptoms and for short periods (no more than 12 weeks), as long-term use can cause serious side effects. * Avoid medications that can slow stomach emptying, such as opioids, anticholinergics, and certain diabetes medications (GLP-1 Vikram, pramlintide), unless specifically directed by your doctor. When to seek help: * Call your doctor if you havesevere vomiting, cannot keep fluids down, lose weight quickly, or have very high or low blood sugar. * Watch for signs of dehydration, such as dry mouth, dizziness, or dark urine. Other tips: * Stay hydrated by drinking water or clear liquids. * If symptoms are severe and you cannot eat enough, your doctor may discuss other nutrition options, such as feeding tubes.[2] Follow-up: * Schedule regular follow-up appointments to monitor your symptoms and adjust your treatment plan as needed. Remember: Managing diabetic gastroparesis takes time and teamwork. Following these instructions can help reduce symptoms and improve your quality of life. Assessment: While I am hopeful that getting your gallbladder out will help you be able to tolerate food better, I am concerned that you may be developing a problem called diabetic gastroparesis. While you can continue to see your naturopathic doctor, I would encourage you also to start seeing a more conventional doctor as well. There is a list of doctors attached to these instructions. Some of them work in the same clinic as Dr Youssef. Print Language: Vietnamese Patient Instructions: Surg Dc Stand Alone Forms: PCP List Follow-up Care: Pramod Holland MD [Provider Admit Priv/Credential, Surgery, General] - 2 Weeks Vitals documented within 30 minutes of discharge?: Yes
--- NOTE | 2025-09-15 10:29 | PROVIDER PROGRESS NOTE ---
Subjective General Admit Date: 09/13/25 Procedure Date: 09/14/25 Post Op Days: 1 Procedure Performed: Laparoscopic cholecystectomy Other Other Information/Narrative: Doing well this morning, reports good pain control, tolerating some PO intake but reports continuing to have nausea. OOB ambulating ad/donny, asking to go home today. Wound Assessment Wound/Incisions: positive Healing well Review of Systems Status of ROS: 10 or more systems reviewed and unremarkable except as noted in history and below Exam Exam Vital Signs: Vital Signs x48h Temp Pulse Resp BP BP Pulse Ox 09/15/25 07:38 36.7 C 76 16 140/63 H 95 09/15/25 06:00 37.1 C 78 14 146/70 H 97 09/15/25 02:25 37 C 77 16 123/66 96 Constitutional normal general appearance and no apparent distress HENMT normocephalic and head/scalp atraumatic Eyes conjunctivae normal and no scleral icterus Neck/C-Spine visual inspection normal Respiratory normal respiratory effort Cardiovascular normal heart rate noted and regular rhythm noted Gastrointestinal Incisions with skin glue in place, healing appropriately, abdomen otherwise non distended, soft and appropriately TTP. Extremities normal to inspection Neurology GCS 15 Psychiatry thought process normal and cooperative Skin skin color normal Impression/Plan Problem List (1) Biliary colic: Plan: 60 yo F with recurrent episodes of biliary colic causing her to have poor po intake and admitted 09/13 with hypotension and SYLVIA which resolved with fluid administration. Now s/p lap shilpa on 09/14 with intraoperative findings of adhesions from the gallbladder to the omentum concerning for possible chronic cholecystitis. Doing well this morning with minimal pain, tolerating some PO intake but still having nausea, asking to go home. - Diet as tolerated - Pain and nausea control as needed - Encourage OOB/ambulation - Dispo planning home today appropriate - Rest of care per primary (2) SYLVIA (acute kidney injury): (3) CAD (coronary artery disease): (4) Diabetes:
[2025-09-15 12:14] VITALS: BP 127/64; O2SAT 97
== END 2025-09-15 12:15 | disposition home or self-care (01) ==
LOC: MS2 16:19 → ED 16:19 → MS2 19:47
PROVIDERS: ADMIT Physician Assistant Medical; ATTEND Physician Assistant Medical
DX: I48.91 Unspecified atrial fibrillation; I95.9 Hypotension, unspecified; E11.9 Type 2 diabetes mellitus without complications; K80.10 Calculus of gallbladder with chronic cholecystitis without obstruction; Z95.5 Presence of coronary angioplasty implant and graft; I25.2 Old myocardial infarction; Z79.4 Long term (current) use of insulin; R63.8 Other symptoms and signs concerning food and fluid intake; N17.9 Acute kidney failure, unspecified; Z79.02 Long term (current) use of antithrombotics/antiplatelets; Z79.899 Other long term (current) drug therapy; F17.210 Nicotine dependence, cigarettes, uncomplicated; I25.10 Atherosclerotic heart disease of native coronary artery without angina pectoris; E86.0 Dehydration